=== PATIENT | female | born 1990 | race Caucasian/White ===

== ENCOUNTER 2017-02-13 07:12 | Emergency (ER) | payer OTHER ==
[2017-02-13] MEDS ORDERED: SODIUM CHLORIDE 0.9% 500 ML IV STA (07:46)
[2017-02-13] MEDS ORDERED: SODIUM CHLORIDE 0.9% 1,000 ML IV STA (07:46)
[2017-02-13] MEDS ORDERED: KETOROLAC 30 MG/ML 1 ML VIAL IVP STA (07:46)
[2017-02-13] MEDS ORDERED: FAMOTIDINE 20 MG/2 ML VIAL IV STA (07:47)
--- NOTE | 2017-02-13 07:50 | ED ---
General Adult HPI - General Chief complaint: Abdominal Pain Stated complaint: Abdominal Pain Time Seen by Provider: 02/13/17 07:37 Source: patient, RN notes reviewed Mode of arrival: ambulatory Limitations: no limitations - History of Present Illness Initial comments: Patient is a pleasant 27-year-old female presenting to the emergency Department with abdominal discomfort. Onset of symptoms was over a week ago. Symptoms have been worse since last night. Patient has had decreased appetite. Food doesn't seem to make symptoms worse. Discomfort is right upper abdomen without radiation. Patient had nausea and vomiting last night however nausea has now resolved. No history of similar symptoms previously. No fever. Patient reportedly recent negative home test. - Related Data Previous Rx's Medication Instructions Recorded Famotidine [Pepcid] 20 mg PO BID #30 tablet 02/13/17 Metoclopramide HCl [Reglan] 10 mg PO Q6HR PRN #15 tablet 02/13/17 traMADol HCl [Ultram] 50 mg PO Q6H PRN #12 tab 02/13/17 Allergies Allergy/AdvReac Type Severity Reaction Status Date / Time codeine Allergy Unknown Verified 02/13/17 07:17 diphenhydramine HCl Allergy Unknown Verified 02/13/17 07:17 [From Benadryl] Review of Systems ROS Statement: Those systems with pertinent positive or pertinent negative responses have been documented in the HPI. ROS Other: All systems not noted in ROS Statement are negative. Constitutional: Denies: fever Eyes: Denies: eye pain ENT: Denies: ear pain Respiratory: Denies: cough Cardiovascular: Denies: chest pain Endocrine: Denies: fatigue Gastrointestinal: Reports: abdominal pain, nausea, vomiting. Denies: diarrhea, constipation Genitourinary: Denies: dysuria Musculoskeletal: Denies: back pain Skin: Denies: rash Neurological: Denies: weakness Past Medical History Past Medical History: Asthma, Musculoskeletal Disorder Additional Past Medical History / Comment(s): Obstetric history: This is her first . She has had care with me since 9 weeks gestation. O neg, abs neg, Rub Imm, RPR NR, Hep B neg. normal 1hr GTT. Rhogam received . normal anatomy US. GBS neg History of Any Multi-Drug Resistant Organisms: None Reported Past Surgical History: Tonsillectomy Additional Past Surgical History / Comment(s): no hx of anesthesia problems for self or family Past Anesthesia/Blood Transfusion Reactions: No Reported Reaction Past Psychological History: ADD/ADHD Smoking Status: Current every day smoker Past Alcohol Use History: Abuse, Occasional Past Drug Use History: None Reported General Exam Limitations: no limitations General appearance: alert, in no apparent distress Eye exam: Present: normal appearance, PERRL ENT exam: Present: normal oropharynx Neck exam: Present: normal inspection Respiratory exam: Present: normal lung sounds bilaterally Cardiovascular Exam: Present: regular rate, normal rhythm Expanded Peripheral pulses: 2+: Dorsalis Pedis (R), Dorsalis Pedis (L) GI/Abdominal exam: Present: soft, tenderness (Mild to moderate tenderness right upper quadrant), normal bowel sounds. Absent: distended, guarding, rebound, rigid, pulsatile mass Extremities exam: Present: normal inspection Neurological exam: Present: alert Psychiatric exam: Present: normal affect, normal mood Skin exam: Present: normal color Course Vital Signs 02/13/17 02/13/17 07:15 07:40 Temperature 97.4 F L Pulse Rate 72 62 Respiratory 20 18 Rate Blood Pressure 124/66 116/74 O2 Sat by Pulse 98 98 Oximetry Medical Decision Making - Medical Decision Making Patient reevaluated and resting comfortably in bed. Patient has some improvement of symptoms however states she is not quite symptom-free. Abdomen soft and nontender. Patient offered computed tomography scan of the abdomen however refuses and is comfortable with discharge and agrees to follow-up. - Lab Data Result diagrams: 02/13/17 07:35 02/13/17 07:35 Lab Results 02/13/17 02/13/17 02/13/17 Range/Units 07:35 07:35 07:35 WBC 5.0 (3.8-10.6) k/uL RBC 4.46 (3.80-5.40) m/uL Hgb 13.6 (11.4-16.0) gm/dL Hct 40.0 (34.0-46.0) % MCV 89.7 (80.0-100.0) fL MCH 30.5 (25.0-35.0) pg MCHC 34.1 (31.0-37.0) g/dL RDW 12.6 (11.5-15.5) % Plt Count 192 (150-450) k/uL Neutrophils % 47 % Lymphocytes % 39 % Monocytes % 6 % Eosinophils % 4 % Basophils % 1 % Neutrophils # 2.4 (1.3-7.7) k/uL Lymphocytes # 1.9 (1.0-4.8) k/uL Monocytes # 0.3 (0-1.0) k/uL Eosinophils # 0.2 (0-0.7) k/uL Basophils # 0.0 (0-0.2) k/uL PT (9.0-12.0) sec INR (<1.1) APTT (22.0-30.0) sec Sodium 143 (137-145) mmol/L Potassium 3.7 (3.5-5.1) mmol/L Chloride 110 H (98-107) mmol/L Carbon Dioxide 21 L (22-30) mmol/L Anion Gap 12 mmol/L BUN 11 (7-17) mg/dL Creatinine 0.65 (0.52-1.04) mg/dL Est GFR (MDRD) Af Amer >60 (>60 ml/min/1.73 sqM) Est GFR (MDRD) Non-Af >60 (>60 ml/min/1.73 sqM) Glucose 99 (74-99) mg/dL Calcium 9.3 (8.4-10.2) mg/dL Total Bilirubin 0.8 (0.2-1.3) mg/dL AST 18 (14-36) U/L ALT 22 (9-52) U/L Alkaline Phosphatase 55 (38-126) U/L Total Protein 6.9 (6.3-8.2) g/dL Albumin 4.3 (3.5-5.0) g/dL Amylase 55 (30-110) U/L Lipase 108 (23-300) U/L Urine Color Urine Appearance (Clear) Urine pH (5.0-8.0) Ur Specific [place] (1.001-1.035) Urine Protein (Negative) Urine Glucose (UA) (Negative) Urine Ketones (Negative) Urine Blood (Negative) Urine Nitrite (Negative) Urine Bilirubin (Negative) Urine Urobilinogen (<2.0) mg/dL Ur Leukocyte Esterase (Negative) Urine RBC (0-5) /hpf Urine WBC (0-5) /hpf Ur Squamous Epith Cells (0-4) /hpf Urine Bacteria (None) /hpf Urine Mucus (None) /hpf Urine HCG, Qual Not Detected (Not Detectd) 02/13/17 02/13/17 Range/Units 07:35 07:35 WBC (3.8-10.6) k/uL RBC (3.80-5.40) m/uL Hgb (11.4-16.0) gm/dL Hct (34.0-46.0) % MCV (80.0-100.0) fL MCH (25.0-35.0) pg MCHC (31.0-37.0) g/dL RDW (11.5-15.5) % Plt Count (150-450) k/uL Neutrophils % % Lymphocytes % % Monocytes % % Eosinophils % % Basophils % % Neutrophils # (1.3-7.7) k/uL Lymphocytes # (1.0-4.8) k/uL Monocytes # (0-1.0) k/uL Eosinophils # (0-0.7) k/uL Basophils # (0-0.2) k/uL PT 10.6 (9.0-12.0) sec INR 1.0 (<1.1) APTT 25.0 (22.0-30.0) sec Sodium (137-145) mmol/L Potassium (3.5-5.1) mmol/L Chloride (98-107) mmol/L Carbon Dioxide (22-30) mmol/L Anion Gap mmol/L BUN (7-17) mg/dL Creatinine (0.52-1.04) mg/dL Est GFR (MDRD) Af Amer (>60 ml/min/1.73 sqM) Est GFR (MDRD) Non-Af (>60 ml/min/1.73 sqM) Glucose (74-99) mg/dL Calcium (8.4-10.2) mg/dL Total Bilirubin (0.2-1.3) mg/dL AST (14-36) U/L ALT (9-52) U/L Alkaline Phosphatase (38-126) U/L Total Protein (6.3-8.2) g/dL Albumin (3.5-5.0) g/dL Amylase (30-110) U/L Lipase (23-300) U/L Urine Color Yellow Urine Appearance Turbid H (Clear) Urine pH 6.0 (5.0-8.0) Ur Specific [place] 1.021 (1.001-1.035) Urine Protein Trace H (Negative) Urine Glucose (UA) Negative (Negative) Urine Ketones Negative (Negative) Urine Blood Negative (Negative) Urine Nitrite Positive H (Negative) Urine Bilirubin Negative (Negative) Urine Urobilinogen <2.0 (<2.0) mg/dL Ur Leukocyte Esterase Trace H (Negative) Urine RBC 6 H (0-5) /hpf Urine WBC 3 (0-5) /hpf Ur Squamous Epith Cells 52 H (0-4) /hpf Urine Bacteria Occasional H (None) /hpf Urine Mucus Many H (None) /hpf Urine HCG, Qual (Not Detectd) - Radiology Data Radiology results: report reviewed (Ultrasound gallbladder shows no acute process), image reviewed (KUB shows no acute process) Disposition Clinical Impression: Abdominal pain Disposition: HOME SELF-CARE Condition: Stable Instructions: Abdominal Pain (ED) Additional Instructions: Please follow-up to in the beginning of the week. Consider HIDA scan. Consider EGD/scope. Return for increased pain, vomiting, fever, worsening symptoms or other concerns. Prescriptions: Famotidine [Pepcid] 20 mg PO BID #30 tablet Metoclopramide HCl [Reglan] 10 mg PO Q6HR PRN #15 tablet PRN Reason: Nausea traMADol HCl [Ultram] 50 mg PO Q6H PRN #12 tab PRN Reason: Pain/Discomfort Referrals: Adriana Michaels MD [Primary Care Provider] - 1-2 days Time of Disposition: 09:21
[2017-02-13 08:04] LABS: Basophils % (A) 1 %; CH 30.6; CHCM 34.3; Eosinophils # (A) 0.2 k/uL (0-0.7); Eosinophils % (A) 4 %; HDW 2.68; HGB 13.6 gm/dL (11.4-16.0); Luc % (Auto) 4; Lymphocytes # (A) 1.9 k/uL (1.0-4.8); Lymphocytes % (A) 39 %; MCH 30.5 pg (25.0-35.0); MCHC 34.1 g/dL (31.0-37.0); MCV 89.7 fL (80.0-100.0); Mean Platelet Volume 8.3; Monocytes # (A) 0.3 k/uL (0-1.0); Monocytes % (A) 6 %; Neutrophils # (A) 2.4 k/uL (1.3-7.7); Neutrophils % (A) 47 %; RBC 4.46 m/uL (3.80-5.40); RDW 12.6 % (11.5-15.5); WBC (Perox) 5.26
[2017-02-13 08:16] LABS: Appearance,Urine Turbid (Clear); Bacteria,Urine Occasional /hpf; Bilirubin,Urine Negative (Negative); Glucose,Urine (UA) Negative (Negative); Ketones,Urine Negative (Negative); Leukocyte Esterase,Urine Trace (Negative); Mucus,Urine Many /hpf; Nitrite,Urine Positive (Negative); Particle Count 38347; Protein,Urine Trace (Negative); RBC,Urine 6 /hpf (0-5); Specific Gravity,Urine 1.021 (1.001-1.035); Squamous Epithelial Cell,Urine 52 /hpf (0-4); UA Billing (MACRO vs. MICRO) MICRO; Urobilinogen,Urine <2.0 mg/dL (<2.0); WBC,Urine 3 /hpf (0-5)
[2017-02-13 08:18] LABS: Prothrombin Time 10.6 sec (9.0-12.0)
[2017-02-13 08:24] LABS: ALT 22 U/L (9-52); AST 18 U/L (14-36); Alkaline Phosphatase 55 U/L (38-126); Amylase 55 U/L (30-110); Anion Gap 12 mmol/L; Blood Urea Nitrogen 11 mg/dL (7-17); Calcium 9.3 mg/dL (8.4-10.2); Carbon Dioxide 21 mmol/L (22-30); Chloride 110 mmol/L (98-107); Glucose 99 mg/dL (74-99); Non-African American GFR(MDRD) >60 (>60 ml/min/1.73 sqM); Potassium 3.7 mmol/L (3.5-5.1); Sodium 143 mmol/L (137-145); Total Bilirubin 0.8 mg/dL (0.2-1.3); Total Protein 6.9 g/dL (6.3-8.2)
--- NOTE | 2017-02-13 09:01 | US ---
EXAMINATION TYPE: US gallbladder DATE OF EXAM: 02/13/2017 COMPARISON: NONE CLINICAL HISTORY: Pain. EC patient with nausea, vomiting and RLQ pain EXAM MEASUREMENTS: Liver Length: 17.5 cm Gallbladder Wall: 0.1 cm CBD: 0.5 cm Right Kidney: 10.3 x 5.4 x 3.8 cm Pancreas: wnl Liver: wnl Gallbladder: wnl Evidence for sonographic Wood's sign: No CBD: wnl Right Kidney: wnl IMPRESSION: 1. No acute process.
--- NOTE | 2017-02-13 09:02 | XR ---
EXAMINATION TYPE: XR KUB DATE OF EXAM: 02/13/2017 COMPARISON: NONE HISTORY: Pain TECHNIQUE: One view abdominal series FINDINGS: The osseous structures are intact. The bowel gas pattern is nonspecific. Lung bases are clear. IMPRESSION: 1. Nonspecific abdomen. No evidence of obstruction.
[2017-02-13] MEDS ORDERED: RX INFO: IV CONTRAST WAS GIVEN 1 EACH MISC MISCELLANE PRN (09:41)
[2017-02-13] MEDS ORDERED: HYDROmorphone 1 MG/ML 1 ML SYRINGE IVP STA (09:41)
--- NOTE | 2017-02-13 10:30 | CT ---
EXAM: CT Abdomen and Pelvis With Intravenous Contrast CLINICAL HISTORY: 27-year-old female with mid abdominal pain. TECHNIQUE: Axial computed tomography images of the abdomen and pelvis with intravenous contrast. Coronal and sagittal reformatted images were created and reviewed. CTDI is 10.3 mGy and DLP is 405.4 mGy-cm. This CT exam was performed using one or more of the following dose reduction techniques: automated exposure control, adjustment of the mA and/or kV according to patient size, and/or use of iterative reconstruction technique. COMPARISON: Right upper quadrant ultrasound earlier same date. FINDINGS: Lower thorax: Unremarkable. ABDOMEN: Liver: Unremarkable. Gallbladder and bile ducts: Unremarkable. Pancreas: Unremarkable. Spleen: Unremarkable. Adrenals: Unremarkable. Kidneys and ureters: Unremarkable. Stomach and bowel: Mildly prominent hanks of the essentially empty ascending and descending/sigmoid colon, likely secondary to nondistention. Appendix: Unremarkable. PELVIS: Bladder: Unremarkable. Reproductive: Prominent, hyperenhancing left paraovarian/gonadal veins. ABDOMEN and PELVIS: Intraperitoneal space: Minimal right posterior pelvic ascites. No free air. Bones/joints: No acute abnormality. Soft tissues: Umbilical ring. Vasculature: Unremarkable. Lymph nodes: No pathologically enlarged lymph nodes. IMPRESSION: No definite acute abnormality identified to explain mid abdominal pain; prominent hanks of the empty/nondistended portions of the large bowel noted, most likely secondary to nondistention, though mild acute colitis is not excluded.
[2017-02-13 10:46] VITALS: BP 109/63
[2017-02-13 11:32] VITALS: PULSE 55; RESP 16; TEMP 97.5
== END 2017-02-13 11:32 | disposition home or self-care (01) ==
LOC: EC 07:12
DX: R10.11 Right upper quadrant pain (principal); R11.10 Vomiting, unspecified; F17.200 Nicotine dependence, unspecified, uncomplicated; Z88.5 Allergy status to narcotic agent; Z88.8 Allergy status to other drugs, medicaments and biological substances
CPT/HCPCS: 99284; 96374; 96375 ×2; 96361 ×4; 36415; 80053; 82150; 83690; 85025; 85610; 85730; 81001; 81025; 74000; 76705; 74177; J1885; J1170; Q9967

== ENCOUNTER 2017-04-01 17:37 | Emergency (ER) | payer OTHER ==
[2017-04-01] MEDS ORDERED: SODIUM CHLORIDE 0.9% 1,000 ML IV ONE (18:11)
[2017-04-01] MEDS ORDERED: METOCLOPRAMIDE 5 MG/ML 2 ML VIAL IVP STA (18:11)
[2017-04-01] MEDS ORDERED: KETOROLAC 30 MG/ML 1 ML VIAL IVP STA (18:11)
--- NOTE | 2017-04-01 18:16 | ED ---
General Adult HPI - General Chief complaint: Nausea/Vomiting/Diarrhea Stated complaint: NVD Time Seen by Provider: 04/01/17 17:51 Source: EMS, RN notes reviewed Mode of arrival: EMS Limitations: no limitations - History of Present Illness Initial comments: Patient is a 27-year-old female presents emergency room for evaluation of nausea , vomiting and abdominal pain. Patient states having on and off abdominal pain for the past few months. Patient states she follow-up with her primary care provider and they told her she had an ulcer. Patient states over the past few months she's been having on and off vomiting. Patient states she was seen at [facility] about 3 days ago and they sent her home with Ayudaruman. Patient states the Zofran is not helping. Patient states she still having vomiting and intermittent suprapubic abdominal pain. Patient denies any pain or burning during urination, trouble urinating or blood in urine. Patient denies history of STDs. Patient denies any vaginal discharge or vaginal discomfort. Patient denies history of abdominal surgeries. Patient denies recent travel outside the country. Patient states having 5 out of 10 pain. Patient denies flank pain. Patient denies fevers or chills. Patient does state that she is feeling dizzy with a slight headache. - Related Data Home Medications Medication Instructions Recorded Confirmed Ondansetron Odt [Zofran Odt] 4 mg PO Q8HR PRN 04/01/17 04/01/17 Previous Rx's Medication Instructions Recorded Metoclopramide HCl [Reglan] 10 mg PO TID PRN #12 tablet 04/01/17 Allergies Allergy/AdvReac Type Severity Reaction Status Date / Time codeine Allergy Unknown Verified 04/01/17 17:54 diphenhydramine HCl Allergy Unknown Verified 04/01/17 17:54 [From Benadryl] Review of Systems ROS Statement: Those systems with pertinent positive or pertinent negative responses have been documented in the HPI. ROS Other: All systems not noted in ROS Statement are negative. Past Medical History Past Medical History: Asthma, Musculoskeletal Disorder Additional Past Medical History / Comment(s): Obstetric history: This is her first . She has had care with me since 9 weeks gestation. O neg, abs neg, Rub Imm, RPR NR, Hep B neg. normal 1hr GTT. Rhogam received . normal anatomy US. GBS neg History of Any Multi-Drug Resistant Organisms: None Reported Past Surgical History: Tonsillectomy Additional Past Surgical History / Comment(s): no hx of anesthesia problems for self or family Past Anesthesia/Blood Transfusion Reactions: No Reported Reaction Past Psychological History: ADD/ADHD Smoking Status: Current every day smoker Past Alcohol Use History: Abuse, Occasional Past Drug Use History: None Reported General Exam - General Exam Comments Initial Comments: laying in exam room, no distress. Limitations: no limitations General appearance: alert, in no apparent distress Head exam: Present: atraumatic, normocephalic, normal inspection Eye exam: Present: normal appearance ENT exam: Present: normal exam Neck exam: Present: normal inspection Respiratory exam: Present: normal lung sounds bilaterally. Absent: respiratory distress Cardiovascular Exam: Present: regular rate, normal rhythm, normal heart sounds GI/Abdominal exam: Present: soft, tenderness (suprapubic), normal bowel sounds. Absent: distended, guarding, rebound, rigid Extremities exam: Present: normal inspection Back exam: Present: normal inspection Neurological exam: Present: alert, oriented X3, CN II-XII intact, normal gait Psychiatric exam: Present: normal affect, normal mood Skin exam: Present: warm, dry, intact, normal color. Absent: rash Course Vital Signs 04/01/17 04/01/17 04/01/17 17:54 20:38 21:40 Temperature 97.0 F L 98.7 F Pulse Rate 61 68 76 Respiratory 17 18 18 Rate Blood Pressure 112/71 126/58 126/58 O2 Sat by Pulse 99 98 98 Oximetry Medical Decision Making - Medical Decision Making Patient is a 27-year-old female since emergency room for evaluation of lower abdominal pain. Ultrasound: Small amount of free fluid in the cul-de-sac. Normal uterus and endometrium. No evidence of ovarian torsion. It is possible patient had an ovarian cyst that ruptured. Labs show no concerning findings. Patient advised to follow-up with primary care provider or GI specialist. Patient states she has been following up with GI specialist regarding the nausea and vomiting for the past few months. Patient states she understands everything that was discussed with her. Return parameters discussed. Case discussed with Dr. Mims. - Lab Data Result diagrams: 04/01/17 18:06 04/01/17 18:06 Lab Results 04/01/17 04/01/17 04/01/17 Range/Units 18:06 18:06 18:30 WBC 5.6 (3.8-10.6) k/uL RBC 4.12 (3.80-5.40) m/uL Hgb 12.2 (11.4-16.0) gm/dL Hct 36.1 (34.0-46.0) % MCV 87.6 (80.0-100.0) fL MCH 29.6 (25.0-35.0) pg MCHC 33.8 (31.0-37.0) g/dL RDW 12.9 (11.5-15.5) % Plt Count 170 (150-450) k/uL Neutrophils % 72 % Lymphocytes % 20 % Monocytes % 4 % Eosinophils % 2 % Basophils % 0 % Neutrophils # 4.0 (1.3-7.7) k/uL Lymphocytes # 1.1 (1.0-4.8) k/uL Monocytes # 0.2 (0-1.0) k/uL Eosinophils # 0.1 (0-0.7) k/uL Basophils # 0.0 (0-0.2) k/uL Sodium 138 (137-145) mmol/L Potassium 3.8 (3.5-5.1) mmol/L Chloride 107 (98-107) mmol/L Carbon Dioxide 22 (22-30) mmol/L Anion Gap 9 mmol/L BUN 10 (7-17) mg/dL Creatinine 0.60 (0.52-1.04) mg/dL Est GFR (MDRD) Af Amer >60 (>60 ml/min/1.73 sqM) Est GFR (MDRD) Non-Af >60 (>60 ml/min/1.73 sqM) Glucose 90 (74-99) mg/dL Calcium 8.6 (8.4-10.2) mg/dL Magnesium 1.9 (1.6-2.3) mg/dL Total Bilirubin 0.6 (0.2-1.3) mg/dL AST 27 (14-36) U/L ALT 40 (9-52) U/L Alkaline Phosphatase 54 (38-126) U/L Total Protein 6.6 (6.3-8.2) g/dL Albumin 4.2 (3.5-5.0) g/dL Amylase 56 (30-110) U/L Lipase 69 (23-300) U/L Urine Color Urine Appearance (Clear) Urine pH (5.0-8.0) Ur Specific [place] (1.001-1.035) Urine Protein (Negative) Urine Glucose (UA) (Negative) Urine Ketones (Negative) Urine Blood (Negative) Urine Nitrite (Negative) Urine Bilirubin (Negative) Urine Urobilinogen (<2.0) mg/dL Ur Leukocyte Esterase (Negative) Urine RBC (0-5) /hpf Urine WBC (0-5) /hpf Ur Squamous Epith Cells (0-4) /hpf Urine Bacteria (None) /hpf Hyaline Casts (0-2) /lpf Urine Mucus (None) /hpf Urine HCG, Qual Not Detected (Not Detectd) 04/01/17 Range/Units 18:30 WBC (3.8-10.6) k/uL RBC (3.80-5.40) m/uL Hgb (11.4-16.0) gm/dL Hct (34.0-46.0) % MCV (80.0-100.0) fL MCH (25.0-35.0) pg MCHC (31.0-37.0) g/dL RDW (11.5-15.5) % Plt Count (150-450) k/uL Neutrophils % % Lymphocytes % % Monocytes % % Eosinophils % % Basophils % % Neutrophils # (1.3-7.7) k/uL Lymphocytes # (1.0-4.8) k/uL Monocytes # (0-1.0) k/uL Eosinophils # (0-0.7) k/uL Basophils # (0-0.2) k/uL Sodium (137-145) mmol/L Potassium (3.5-5.1) mmol/L Chloride (98-107) mmol/L Carbon Dioxide (22-30) mmol/L Anion Gap mmol/L BUN (7-17) mg/dL Creatinine (0.52-1.04) mg/dL Est GFR (MDRD) Af Amer (>60 ml/min/1.73 sqM) Est GFR (MDRD) Non-Af (>60 ml/min/1.73 sqM) Glucose (74-99) mg/dL Calcium (8.4-10.2) mg/dL Magnesium (1.6-2.3) mg/dL Total Bilirubin (0.2-1.3) mg/dL AST (14-36) U/L ALT (9-52) U/L Alkaline Phosphatase (38-126) U/L Total Protein (6.3-8.2) g/dL Albumin (3.5-5.0) g/dL Amylase (30-110) U/L Lipase (23-300) U/L Urine Color Yellow Urine Appearance Cloudy H (Clear) Urine pH 7.0 (5.0-8.0) Ur Specific [place] 1.019 (1.001-1.035) Urine Protein Trace H (Negative) Urine Glucose (UA) Negative (Negative) Urine Ketones 1+ H (Negative) Urine Blood Negative (Negative) Urine Nitrite Negative (Negative) Urine Bilirubin Negative (Negative) Urine Urobilinogen <2.0 (<2.0) mg/dL Ur Leukocyte Esterase Negative (Negative) Urine RBC 3 (0-5) /hpf Urine WBC 2 (0-5) /hpf Ur Squamous Epith Cells 6 H (0-4) /hpf Urine Bacteria Rare H (None) /hpf Hyaline Casts 1 (0-2) /lpf Urine Mucus Moderate H (None) /hpf Urine HCG, Qual (Not Detectd) - Radiology Data Radiology results: report reviewed, image reviewed Disposition Clinical Impression: Nausea and vomiting, Abdominal pain Disposition: HOME SELF-CARE Condition: Good Instructions: Abdominal Pain (ED) Additional Instructions: Please follow-up with primary care provider or GI specialist. Take Reglan as needed for nausea. If any new symptom arises or symptoms worsen, return to ER as soon as possible. Prescriptions: Metoclopramide HCl [Reglan] 10 mg PO TID PRN #12 tablet PRN Reason: Pain Referrals: Adriana Michaels MD [Primary Care Provider] - 1-2 days Time of Disposition: 21:12
[2017-04-01 18:20] LABS: Basophils % (A) 0 %; CH 30.3; CHCM 34.8; Eosinophils # (A) 0.1 k/uL (0-0.7); Eosinophils % (A) 2 %; HCT 36.1 % (34.0-46.0); HDW 2.61; HGB 12.2 gm/dL (11.4-16.0); Luc # (Auto) 0.09; Luc % (Auto) 2; Lymphocytes # (A) 1.1 k/uL (1.0-4.8); Lymphocytes % (A) 20 %; MCH 29.6 pg (25.0-35.0); MCHC 33.8 g/dL (31.0-37.0); MCV 87.6 fL (80.0-100.0); Mean Platelet Volume 8.5; Monocytes # (A) 0.2 k/uL (0-1.0); Monocytes % (A) 4 %; Neutrophils % (A) 72 %; RBC 4.12 m/uL (3.80-5.40); RDW 12.9 % (11.5-15.5); WBC 5.6 k/uL (3.8-10.6); WBC (Perox) 5.86
[2017-04-01 18:23] LABS: ALT 40 U/L (9-52); AST 27 U/L (14-36); Alkaline Phosphatase 54 U/L (38-126); Amylase 56 U/L (30-110); Anion Gap 9 mmol/L; Blood Urea Nitrogen 10 mg/dL (7-17); Calcium 8.6 mg/dL (8.4-10.2); Carbon Dioxide 22 mmol/L (22-30); Chloride 107 mmol/L (98-107); Glucose 90 mg/dL (74-99); Magnesium 1.9 mg/dL (1.6-2.3); Non-African American GFR(MDRD) >60 (>60 ml/min/1.73 sqM); Potassium 3.8 mmol/L (3.5-5.1); Sodium 138 mmol/L (137-145); Total Bilirubin 0.6 mg/dL (0.2-1.3); Total Protein 6.6 g/dL (6.3-8.2)
[2017-04-01 18:59] LABS: Appearance,Urine Cloudy (Clear); Bacteria,Urine Rare /hpf; Bilirubin,Urine Negative (Negative); Glucose,Urine (UA) Negative (Negative); Ketones,Urine 1+ (Negative); Leukocyte Esterase,Urine Negative (Negative); Mucus,Urine Moderate /hpf; Nitrite,Urine Negative (Negative); Particle Count 6606; Protein,Urine Trace (Negative); RBC,Urine 3 /hpf (0-5); Specific Gravity,Urine 1.019 (1.001-1.035); Squamous Epithelial Cell,Urine 6 /hpf (0-4); UA Billing (MACRO vs. MICRO) MICRO; Urobilinogen,Urine <2.0 mg/dL (<2.0); WBC,Urine 2 /hpf (0-5)
[2017-04-01 20:41] VITALS: BP 126/58; RESP 18
--- NOTE | 2017-04-01 21:35 | US ---
EXAMINATION TYPE: US transvaginal DATE OF EXAM: 04/01/2017 COMPARISON: NONE CLINICAL HISTORY: Pain. Irregular menses, pelvic pain TECHNIQUE: Transvaginal (TV) Date of LMP: 03/29/17 EXAM MEASUREMENTS: Uterus: 9.5 x 4.9 x 5.9 cm Endometrial Stripe: 0.5 cm Right Ovary: 2.7 x 1.6 x 1.4 cm Left Ovary: 3.1 x 1.7 x 1.8 cm 1. Uterus: Anteverted appears wnl 2. Endometrium: wnl 3. Right Ovary: follicles noted 4. Left Ovary: follicles noted Spectral, color and waveform doppler imaging shows good arterial and venous flow within the ovaries ; there is no evidence for ovarian torsion. 5. Bilateral Adnexa: appears wnl 6. Posterior cul-de-sac: small amount of free fluid IMPRESSION: There is a small amount of free fluid in the cul-de-sac. Normal uterus and endometrium. N o evidence of ovarian torsion.
[2017-04-01 21:41] VITALS: PULSE 76; TEMP 98.7
== END 2017-04-01 21:39 | disposition home or self-care (01) ==
LOC: EC 17:37
DX: R11.2 Nausea with vomiting, unspecified (principal); R19.7 Diarrhea, unspecified; R10.30 Lower abdominal pain, unspecified; R42 Dizziness and giddiness; R51 Headache; F17.200 Nicotine dependence, unspecified, uncomplicated; Z88.5 Allergy status to narcotic agent; Z88.8 Allergy status to other drugs, medicaments and biological substances
CPT/HCPCS: 99285; 96374; 96375; 36415; 80053; 82150; 83690; 83735; 85025; 81001; 81025; 87086; 93975; 76830; J2765; J1885

== ENCOUNTER 2017-08-19 18:50 | Emergency (ER) | payer OTHER ==
[2017-08-19 19:04] VITALS: TEMP 97.9
[2017-08-19] MEDS ORDERED: SODIUM CHLORIDE 0.9% 1,000 ML IV ONE (19:23)
[2017-08-19] MEDS ORDERED: ONDANSETRON 4 MG/2 ML VIAL IVP STA (19:23)
[2017-08-19 19:42] LABS: Basophils % (A) 0 %; CH 29.5; Eosinophils # (A) 0.2 k/uL (0-0.7); Eosinophils % (A) 3 %; HCT 38.8 % (34.0-46.0); HDW 2.33; HGB 12.8 gm/dL (11.4-16.0); Luc # (Auto) 0.12; Luc % (Auto) 1; Lymphocytes % (A) 23 %; MCH 28.7 pg (25.0-35.0); Mean Platelet Volume 8.1; Monocytes # (A) 0.4 k/uL (0-1.0); Monocytes % (A) 5 %; Neutrophils # (A) 6.1 k/uL (1.3-7.7); Neutrophils % (A) 68 %; RBC 4.46 m/uL (3.80-5.40); RDW 14.3 % (11.5-15.5); WBC 8.9 k/uL (3.8-10.6); WBC (Perox) 9.23
[2017-08-19 19:51] LABS: ALT 68 U/L (9-52); AST 33 U/L (14-36); Alkaline Phosphatase 50 U/L (38-126); Anion Gap 11 mmol/L; Blood Urea Nitrogen 10 mg/dL (7-17); Calcium 9.4 mg/dL (8.4-10.2); Carbon Dioxide 20 mmol/L (22-30); Chloride 106 mmol/L (98-107); Glucose 87 mg/dL (74-99); Non-African American GFR(MDRD) >60 (>60 ml/min/1.73 sqM); Potassium 4.1 mmol/L (3.5-5.1); Sodium 137 mmol/L (137-145); Total Bilirubin 0.6 mg/dL (0.2-1.3); Total Protein 6.7 g/dL (6.3-8.2)
[2017-08-19 20:00] LABS: Appearance,Urine Cloudy (Clear); Bacteria,Urine Rare /hpf; Bilirubin,Urine Negative (Negative); Glucose,Urine (UA) Negative (Negative); Ketones,Urine Negative (Negative); Leukocyte Esterase,Urine Negative (Negative); Mucus,Urine Rare /hpf; Nitrite,Urine Negative (Negative); Particle Count 3796; Protein,Urine Negative (Negative); RBC,Urine <1 /hpf (0-5); Specific Gravity,Urine 1.018 (1.001-1.035); Squamous Epithelial Cell,Urine 20 /hpf (0-4); UA Billing (MACRO vs. MICRO) MICRO; Urobilinogen,Urine <2.0 mg/dL (<2.0); WBC,Urine <1 /hpf (0-5)
--- NOTE | 2017-08-19 20:32 | US ---
EXAMINATION TYPE: US OB <= 14 wk fetus DATE OF EXAM: 08/19/2017 COMPARISON: NONE CLINICAL HISTORY: Pain. Pelvic pain x 1 week EXAM PERFORMED: Transabdominal (TA) EXAM MEASUREMENTS: GESTATIONAL AGE / DATING Physician Established: Not yet established Dates by LMP: (6 weeks/3 days) EDC: 04/11/2018 Dates by First Scan: No IUP seen on last scan Dates by Current Scan for: (6 weeks/5 days) EDC: 04/09/2018 MATERNAL ANATOMY Uterus: 10.3 x 6.8 x 7.3cm Post CDS / Adnexa: wnl Presence of free fluid: no Presence of corpus luteal cyst: no Presence of subchorionic bleed: no GESTATION / SURVEY CRL: 0.80 (6 weeks/5 days) Yolk Sac (normal less than 6mm): 3mm Heart Rate: 170 bpm Rhythm: Normal IUP: Viable IUP Date of LMP: 07/05/2017 Beta HcG (if available): Not available at this time IMPRESSION: VIABLE IUP 6WKS 5DAYS BROCK 04/09/2018 HR 170BPM
[2017-08-19 21:01] VITALS: BP 114/58; PULSE 76; RESP 18
--- NOTE | 2017-08-19 21:16 | ED ---
General Adult HPI - General Chief complaint: Abdominal Pain Stated complaint: Abdominal pain, 7 weeks Time Seen by Provider: 08/19/17 19:05 Source: patient Mode of arrival: ambulatory Limitations: no limitations - History of Present Illness Initial comments: 27-year-old female who states she is about 7 weeks' and an LMP of 11/6 presented for evaluation of abdominal discomfort and hematuria. She states that for the last week she has been having epigastric and right lower quadrant abdominal discomfort. About 3 weeks ago she was diagnosed with a urinary tract infection however she was not given any antibiotics. She continues to have some dysuria. She also states she has a history of kidney stones however this pain is not similar at all. She is not tried any medications at home to control her symptoms. She has not followed up with her [employer] for this current but she states that she is on vitamins. - Related Data Home Medications Medication Instructions Recorded Confirmed Acetaminophen Tab [Tylenol Tab] 325 mg PO Q6HR PRN 08/19/17 08/19/17 Czm-Shfo-Eotcy Acid 1 cap PO DAILY 08/19/17 08/19/17 [-U Capsule (formulary)] Allergies Allergy/AdvReac Type Severity Reaction Status Date / Time codeine Allergy Rash/Hives Verified 08/19/17 19:12 diphenhydramine HCl Allergy Rash/Hives Verified 08/19/17 19:12 [From Benadryl] Review of Systems ROS Statement: Those systems with pertinent positive or pertinent negative responses have been documented in the HPI. ROS Other: All systems not noted in ROS Statement are negative. Constitutional: Denies: fever, chills Eyes: Denies: eye pain, eye discharge ENT: Denies: ear pain, throat pain Respiratory: Denies: cough, dyspnea, wheezes Cardiovascular: Denies: chest pain, palpitations Endocrine: Denies: fatigue, polydipsia, polyuria Gastrointestinal: Reports: abdominal pain, nausea. Denies: vomiting, diarrhea, constipation, hematemesis, melena Genitourinary: Reports: dysuria, hematuria. Denies: urgency, frequency, discharge Musculoskeletal: Denies: back pain, arthralgia, myalgia Skin: Denies: rash, lesions Neurological: Denies: headache, weakness Psychiatric: Denies: anxiety, depression Hematological/Lymphatic: Denies: easy bleeding, easy bruising Past Medical History Past Medical History: Asthma, Musculoskeletal Disorder Additional Past Medical History / Comment(s): Obstetric history: This is her first . She has had care with me since 9 weeks gestation. O neg, abs neg, Rub Imm, RPR NR, Hep B neg. normal 1hr GTT. Rhogam received . normal anatomy US. GBS neg History of Any Multi-Drug Resistant Organisms: None Reported Past Surgical History: Tonsillectomy Additional Past Surgical History / Comment(s): no hx of anesthesia problems for self or family Past Anesthesia/Blood Transfusion Reactions: No Reported Reaction Past Psychological History: ADD/ADHD Smoking Status: Former smoker Past Alcohol Use History: None Reported Past Drug Use History: None Reported General Exam Limitations: no limitations General appearance: alert, in no apparent distress Head exam: Present: atraumatic, normocephalic, normal inspection Eye exam: Present: normal appearance, PERRL, EOMI. Absent: scleral icterus, conjunctival injection, periorbital swelling ENT exam: Present: normal exam, mucous membranes moist Neck exam: Present: normal inspection. Absent: tenderness, meningismus, lymphadenopathy Respiratory exam: Present: normal lung sounds bilaterally. Absent: respiratory distress, wheezes, rales, rhonchi, stridor Cardiovascular Exam: Present: regular rate, normal rhythm, normal heart sounds. Absent: systolic murmur, diastolic murmur, rubs, gallop, clicks GI/Abdominal exam: Present: soft, normal bowel sounds. Absent: distended, tenderness, guarding, rebound, rigid Rectal exam: Present: deferred Extremities exam: Present: normal inspection, full ROM, normal capillary refill. Absent: tenderness, pedal edema, joint swelling, calf tenderness Back exam: Present: normal inspection Neurological exam: Present: alert, oriented X3, CN II-XII intact Psychiatric exam: Present: normal affect, normal mood Skin exam: Present: warm, dry, intact, normal color. Absent: rash Course Vital Signs 08/19/17 08/19/17 19:00 21:00 Temperature 97.9 F Pulse Rate 72 76 Respiratory 16 18 Rate Blood Pressure 116/62 114/58 O2 Sat by Pulse 98 100 Oximetry Medical Decision Making - Medical Decision Making 27-year-old female who states she is about 7 weeks gestation with LMP on 07/05 presented for evaluation of hematuria, dysuria, and abdominal discomfort. On physical examination she is in no apparent distress and has no abdominal tenderness to palpation. There is no CVA tenderness abdomen is soft without peritoneal signs of guarding, rigidity, or rebound. The remainder of her physical exam is benign.Labs revealed no significant abnormalities and is notably negative for urinary tract infection. She is Rh- however she denies any vaginal bleeding. She states that the hematuria is present in the toilet bowl and she is not noticing any blood and she wipes. At this time the administration of RhoGAM is not indicated and will hold off. Pelvic ultrasound shows a viable IUP at 6 weeks 5 days with an estimated date of delivery of . heart rate 170 bpm. The patient was reevaluated and had improvement in her symptoms. She was informed of all results and through shared decision making it was determined that she would be discharged with instructions to follow-up with her primary care physician. She is further advised to return to this facility if her symptoms should worsen or persist. The patient acknowledged an understanding of all information provided and agreed with this plan of care. - Lab Data Result diagrams: 08/19/17 19:33 08/19/17 19:33 Lab Results 08/19/17 08/19/17 08/19/17 Range/Units 19:33 19:33 19:33 WBC 8.9 (3.8-10.6) k/uL RBC 4.46 (3.80-5.40) m/uL Hgb 12.8 (11.4-16.0) gm/dL Hct 38.8 (34.0-46.0) % MCV 87.0 (80.0-100.0) fL MCH 28.7 (25.0-35.0) pg MCHC 33.0 (31.0-37.0) g/dL RDW 14.3 (11.5-15.5) % Plt Count 202 (150-450) k/uL Neutrophils % 68 % Lymphocytes % 23 % Monocytes % 5 % Eosinophils % 3 % Basophils % 0 % Neutrophils # 6.1 (1.3-7.7) k/uL Lymphocytes # 2.0 (1.0-4.8) k/uL Monocytes # 0.4 (0-1.0) k/uL Eosinophils # 0.2 (0-0.7) k/uL Basophils # 0.0 (0-0.2) k/uL Sodium 137 (137-145) mmol/L Potassium 4.1 (3.5-5.1) mmol/L Chloride 106 (98-107) mmol/L Carbon Dioxide 20 L (22-30) mmol/L Anion Gap 11 mmol/L BUN 10 (7-17) mg/dL Creatinine 0.50 L (0.52-1.04) mg/dL Est GFR (MDRD) Af Amer >60 (>60 ml/min/1.73 sqM) Est GFR (MDRD) Non-Af >60 (>60 ml/min/1.73 sqM) Glucose 87 (74-99) mg/dL Calcium 9.4 (8.4-10.2) mg/dL Total Bilirubin 0.6 (0.2-1.3) mg/dL AST 33 (14-36) U/L ALT 68 H (9-52) U/L Alkaline Phosphatase 50 (38-126) U/L Total Protein 6.7 (6.3-8.2) g/dL Albumin 4.1 (3.5-5.0) g/dL Lipase 73 (23-300) U/L Urine Color Urine Appearance (Clear) Urine pH (5.0-8.0) Ur Specific Niles (1.001-1.035) Urine Protein (Negative) Urine Glucose (UA) (Negative) Urine Ketones (Negative) Urine Blood (Negative) Urine Nitrite (Negative) Urine Bilirubin (Negative) Urine Urobilinogen (<2.0) mg/dL Ur Leukocyte Esterase (Negative) Urine RBC (0-5) /hpf Urine WBC (0-5) /hpf Ur Squamous Epith Cells (0-4) /hpf Urine Bacteria (None) /hpf Urine Mucus (None) /hpf Blood Type O Negative Blood Type Recheck No 08/19/17 Range/Units 19:45 WBC (3.8-10.6) k/uL RBC (3.80-5.40) m/uL Hgb (11.4-16.0) gm/dL Hct (34.0-46.0) % MCV (80.0-100.0) fL MCH (25.0-35.0) pg MCHC (31.0-37.0) g/dL RDW (11.5-15.5) % Plt Count (150-450) k/uL Neutrophils % % Lymphocytes % % Monocytes % % Eosinophils % % Basophils % % Neutrophils # (1.3-7.7) k/uL Lymphocytes # (1.0-4.8) k/uL Monocytes # (0-1.0) k/uL Eosinophils # (0-0.7) k/uL Basophils # (0-0.2) k/uL Sodium (137-145) mmol/L Potassium (3.5-5.1) mmol/L Chloride (98-107) mmol/L Carbon Dioxide (22-30) mmol/L Anion Gap mmol/L BUN (7-17) mg/dL Creatinine (0.52-1.04) mg/dL Est GFR (MDRD) Af Amer (>60 ml/min/1.73 sqM) Est GFR (MDRD) Non-Af (>60 ml/min/1.73 sqM) Glucose (74-99) mg/dL Calcium (8.4-10.2) mg/dL Total Bilirubin (0.2-1.3) mg/dL AST (14-36) U/L ALT (9-52) U/L Alkaline Phosphatase (38-126) U/L Total Protein (6.3-8.2) g/dL Albumin (3.5-5.0) g/dL Lipase (23-300) U/L Urine Color Yellow Urine Appearance Cloudy H (Clear) Urine pH 6.0 (5.0-8.0) Ur Specific [place] 1.018 (1.001-1.035) Urine Protein Negative (Negative) Urine Glucose (UA) Negative (Negative) Urine Ketones Negative (Negative) Urine Blood Negative (Negative) Urine Nitrite Negative (Negative) Urine Bilirubin Negative (Negative) Urine Urobilinogen <2.0 (<2.0) mg/dL Ur Leukocyte Esterase Negative (Negative) Urine RBC <1 (0-5) /hpf Urine WBC <1 (0-5) /hpf Ur Squamous Epith Cells 20 H (0-4) /hpf Urine Bacteria Rare H (None) /hpf Urine Mucus Rare H (None) /hpf Blood Type Blood Type Recheck Disposition Clinical Impression: Abdominal pain, Dysuria, First trimester Disposition: HOME SELF-CARE Condition: Stable Instructions: Abdominal Pain in (ED) Referrals: Adriana Michaels MD [Primary Care Provider] - 1-2 days Time of Disposition: 21:15
[2017-08-19] MEDS ORDERED: ONDANSETRON 4 MG ODT STARTER PACK 2 TAB BTL PO STA (21:54)
== END 2017-08-19 21:58 | disposition home or self-care (01) ==
LOC: EC 18:50
DX: O99.89 Other specified diseases and conditions complicating pregnancy, childbirth and the puerperium (principal); R10.31 Right lower quadrant pain; R30.0 Dysuria; Z87.891 Personal history of nicotine dependence; Z88.5 Allergy status to narcotic agent; Z88.8 Allergy status to other drugs, medicaments and biological substances; Z3A.01 Less than 8 weeks gestation of pregnancy; Z79.899 Other long term (current) drug therapy
CPT/HCPCS: 36415; 86900; 86901; 80053; 83690; 85025; 81001; 84702; 87086; 76801; 96374; 96361 ×2; 99284; J2405; S0119

== ENCOUNTER 2018-06-26 23:45 | Inpatient (IN) | payer MEDICAID, OTHER ==
[2018-06-26] MEDS ORDERED: SODIUM CHLORIDE 0.9% 500 ML 500 ML IV STA (23:59)
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
[2018-06-27 03:51] VITALS: BMI 25.1
[2018-06-27] MEDS ORDERED: MAG HYDROX/AL HYDROX/SIMETH 30 ML CUP PO PRN (04:32)
[2018-06-27] MEDS ORDERED: LORazepam 1 MG TAB PO PRN (04:32)
[2018-06-27] MEDS ORDERED: MAGNESIUM HYDROXIDE 2,400 MG/10 ML CUP PO PRN (04:32)
[2018-06-27] MEDS: NICOTINE 14MG/24HR PATCH TRANSDERM SCH (08:46)
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
[2018-06-27 11:27] LABS: Anisocytosis Slight; Basophils % (A) 1 %; Eosinophils # (A) 0.3 k/uL (0-0.7); Eosinophils % (A) 8 %; HCT 35.8 % (34.0-46.0); HGB 11.9 gm/dL (11.4-16.0); Lymphocytes # (A) 0.9 k/uL (1.0-4.8); Lymphocytes % (A) 24 %; MCH 27.7 pg (25.0-35.0); MCHC 33.1 g/dL (31.0-37.0); MCV 83.5 fL (80.0-100.0); Mean Platelet Volume 7.5; Monocytes # (A) 0.2 k/uL (0-1.0); Monocytes % (A) 5 %; Neutrophils # (A) 2.3 k/uL (1.3-7.7); Neutrophils % (A) 60 %; Platelet Count 219 k/uL (150-450); RBC 4.29 m/uL (3.80-5.40); RDW 16.7 % (11.5-15.5); WBC 3.9 k/uL (3.8-10.6)
[2018-06-27 11:50] LABS: ALT 32 U/L (9-52); AST 23 U/L (14-36); Albumin 3.7 g/dL (3.5-5.0); Alkaline Phosphatase 65 U/L (38-126); Anion Gap 8 mmol/L; Blood Urea Nitrogen 13 mg/dL (7-17); Calcium 9.1 mg/dL (8.4-10.2); Carbon Dioxide 24 mmol/L (22-30); Chloride 109 mmol/L (98-107); Cholesterol 121 mg/dL (<200); Glucose 102 mg/dL (74-99); HDL Cholesterol 39 mg/dL (40-60); LDL Cholesterol,Calculated 55 mg/dL (0-99); Potassium 3.2 mmol/L (3.5-5.1); Sodium 141 mmol/L (137-145); Total Bilirubin 0.6 mg/dL (0.2-1.3); Total Protein 6.4 g/dL (6.3-8.2); Triglycerides 137 mg/dL (<150)
--- NOTE | 2018-06-27 13:13 | P.CONS ---
History of Present Illness - History of Present Illness This is a pleasant 28 years old female with past medical history of asthma and musculoskeletal disorder and depression. Patient has a new about 9 weeks/ 2 months ago. And she presents to the mental health unit for suspected depressions and suicidal ideation and the psychiatry team are following the case. We have been consulted for medical management. However when I saw the patient she denies chest pain, no dyspnea. No change in urine or bowel habits. No nausea vomiting. No fever. No dizziness or headache. No blurred vision all abnormal weakness in limbs or extremities. And no other physical complaints. Recheck in agreement states is offered however patient declined. Risks and alternatives are explained. Review of Systems CONSTITUTIONAL: No fever, no malaise, no fatigue. HEENT: No recent visual problems or hearing problems. Denied any sore throat. CARDIOVASCULAR: No orthopnea, PND, no palpitations, no syncope. PULMONARY: No shortness of breath, no cough, no hemoptysis. GASTROINTESTINAL: No diarrhea, no nausea, no vomiting, no abdominal pain. Normoactive bowel sounds. NEUROLOGICAL: No headaches, no weakness, no numbness. HEMATOLOGICAL: Denies any bleeding or petechiae. GENITOURINARY: Denies any burning micturition, frequency, or urgency. MUSCULOSKELETAL/RHEUMATOLOGICAL: Denies any joint pain, swelling, or any muscle pain. ENDOCRINE: Denies any polyuria or polydipsia. Past Medical History Past Medical History: Asthma, Musculoskeletal Disorder Additional Past Medical History / Comment(s): Obstetric history: This is her first . She has had care with ma since 9 weeks gestation. O neg, abs neg, Rub Imm, RPR NR, Hep B neg. normal 1hr GTT. Rhogam received . normal anatomy US. GBS neg History of Any Multi-Drug Resistant Organisms: None Reported Past Surgical History: Tonsillectomy Additional Past Surgical History / Comment(s): no hx of anesthesia problems for self or family Past Anesthesia/Blood Transfusion Reactions: No Reported Reaction Smoking Status: Current every day smoker Medications and Allergies Home Medications Medication Instructions Recorded Confirmed Type No Known Home Medications 06/26/18 06/27/18 History Allergies Allergy/AdvReac Type Severity Reaction Status Date / Time codeine Allergy Rash/Hives Verified 06/27/18 03:27 diphenhydramine HCl Allergy Rash/Hives Verified 06/27/18 03:27 [From [facility]] Physical Exam Vitals: Vital Signs Temp Pulse Pulse Resp BP BP Pulse Ox 06/27/18 03:28 97.1 F L 69 16 128/67 06/26/18 23:49 98.1 F 70 18 136/90 98 Intake and Output 06/26/18 06/27/18 06/27/18 22:59 06:59 14:59 Other: Weight 68.492 kg GENERAL: The patient is alert and oriented x3, not in any acute distress. Well developed, well nourished. HEENT: Pupils are round and equally reacting to light. EOMI. No scleral icterus. No conjunctival pallor. Normocephalic, atraumatic. No pharyngeal erythema. No thyromegaly. CARDIOVASCULAR: S1 and S2 present. No murmurs, rubs, or gallops. PULMONARY: Chest is clear to auscultation, no wheezing or crackles. ABDOMEN: Soft, nontender, nondistended, normoactive bowel sounds. No palpable organomegaly. MUSCULOSKELETAL: No joint swelling or deformity. EXTREMITIES: No cyanosis, clubbing, or pedal edema. NEUROLOGICAL: Gross neurological examination did not reveal any focal deficits. SKIN: No rashes. Results CBC & Chem 7: 06/27/18 10:50 06/27/18 10:50 Assessment and Plan Assessment: History of asthma, not in acute exacerbation or attack U travel person, about 2 months ago depression and suicidal ideation. Management as per primary team Plan: This is a pleasant 28 years old female who presents for depression and suicidal ideation and spleen managed for her these and other psych illnesses by the primary team. He will been consulted for medical management. However patient doesn't have specific symptoms.Labs and medication were resumed. Continue same treatment. Continue with symptomatic treatment. Resume home medication. Monitor lytes and vitals. DVT and GI prophylaxis. Further recommendationsof the clinical course of the patient DVT prophylaxis: Patient is mobile and no need for anticoagulation Instructed to follow up with her PCP in one week after discharge Thank you for consulting us, please feel free to contact us for further clarification or questions.
[2018-06-27 19:29] LABS: Hemoglobin A1C 5.1 % (4.0-6.0)
[2018-06-27] MEDS ORDERED: lamoTRIgine 25 MG TAB PO SCH (21:00)
[2018-06-27] MEDS ORDERED: risperiDONE 0.5 MG TAB PO SCH (21:00)
[2018-06-27] MEDS ORDERED: POTASSIUM CHLORIDE ER 20 MEQ TAB.ER PO STA (21:52)
[2018-06-28] MEDS: NICOTINE 14MG/24HR PATCH TRANSDERM SCH (08:55)
[2018-06-28 10:19] LABS: Amphetamine Screen,Urine Not Detected (NotDetected); Barbiturate Screen,Urine Not Detected (NotDetected); Benzodiazepines Screen,Urine Not Detected (NotDetected); Cocaine Screen,Urine Not Detected (NotDetected); Methadone Screen, Urine Not Detected (NotDetected); Opiate Screen,Urine Not Detected (NotDetected); Oxycodone Screen, Urine Not Detected (NotDetected); Phencyclidine Screen,Urine Not Detected (NotDetected); Tricyclic Antidepressant,Urine Not Detected (NotDetected); Urn Cannabinoid Scrn Detected (NotDetected)
[2018-06-28 11:44] LABS: Anion Gap 9 mmol/L; Blood Urea Nitrogen 15 mg/dL (7-17); Calcium 9.6 mg/dL (8.4-10.2); Carbon Dioxide 23 mmol/L (22-30); Chloride 109 mmol/L (98-107); Glucose 98 mg/dL (74-99); Potassium 4.1 mmol/L (3.5-5.1); Sodium 141 mmol/L (137-145)
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
[2018-06-28] MEDS: risperiDONE 0.25 MG TAB PO SCH (20:42)
[2018-06-28] MEDS ORDERED: lamoTRIgine 25 MG TAB PO SCH (21:00)
[2018-06-29] MEDS: ACETAMINOPHEN TAB 325 MG TAB PO PRN ×2 (08:11→13:23)
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
[2018-06-29] MEDS: risperiDONE 0.25 MG TAB PO SCH (20:12)
[2018-06-29] MEDS ORDERED: lamoTRIgine 100 MG TAB PO SCH (21:00)
[2018-06-30 00:33] VITALS: RESP 16
[2018-06-30] MEDS: ACETAMINOPHEN TAB 325 MG TAB PO PRN (11:02)
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
[2018-06-30] MEDS: risperiDONE 0.25 MG TAB PO SCH (20:11)
[2018-06-30] MEDS ORDERED: lamoTRIgine 100 MG TAB PO SCH (21:00)
[2018-07-01 06:23] VITALS: BP 121/67; PULSE 61; TEMP 97.9
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
== END 2018-07-01 12:11 | disposition home or self-care (01) | DRG 885 ==
LOC: EC 23:45 → 3MHU 06-27 02:43
PROVIDERS: ADMIT Psychiatry & Neurology Psychiatry; ATTEND Psychiatry & Neurology Psychiatry
DX: F31.30 Bipolar disorder, current episode depressed, mild or moderate severity, unspecified (principal); R45.851 Suicidal ideations; F90.9 Attention-deficit hyperactivity disorder, unspecified type; J45.909 Unspecified asthma, uncomplicated; Z71.6 Tobacco abuse counseling; Z87.891 Personal history of nicotine dependence; Z88.5 Allergy status to narcotic agent; Z88.8 Allergy status to other drugs, medicaments and biological substances
CPT/HCPCS: 80048; 80053; 80061; 80306; 81025; 82075; 83036; 84436; 84443; 84480; 85025; 99285

== ENCOUNTER 2018-12-12 19:19 | Inpatient (IN) | payer MEDICAID, OTHER ==
--- NOTE | 2018-12-12 19:55 | ED ---
Psych HPI - General Chief Complaint: Psychiatric Symptoms Stated Complaint: Mental Health Time Seen by Provider: 12/12/18 19:55 Source: patient, RN notes reviewed, old records reviewed Mode of arrival: ambulatory - History of Present Illness Initial Comments: This is a 28-year-old female who does admit to drinking coming in for evaluation of psychiatric illness. Patient did take overdose and was seen at the [facility] yesterday, patient's depression and suicidal thoughts have continued. Patient denies any other drugs being used. No prior history of psychiatric MD Complaint: suicidal ideation, feels depressed -: days(s) Associated Psychiatric Symptoms: depression, suicidal ideation Quality: constant Improves With: none Worsens With: none Context: recent alcohol abuse Associated Symptoms: denies other symptoms Treatments Prior to Arrival: placed on mental health hold If Self Harm: admits thoughts of self harm - Related Data Previous Rx's Medication Instructions Recorded lamoTRIgine [LaMICtal] 200 mg PO 2100 30 Days #30 tab 07/01/18 risperiDONE [RisperDAL] 0.75 mg PO HS #90 tab 07/01/18 Allergies Allergy/AdvReac Type Severity Reaction Status Date / Time codeine Allergy Rash/Hives Verified 12/12/18 20:06 diphenhydramine HCl Allergy Rash/Hives Verified 12/12/18 20:06 [From Benadryl] Review of Systems ROS Statement: Those systems with pertinent positive or pertinent negative responses have been documented in the HPI. ROS Other: All systems not noted in ROS Statement are negative. Past Medical History Past Medical History: Asthma, Musculoskeletal Disorder Additional Past Medical History / Comment(s): Obstetric history: This is her first . She has had care with me since 9 weeks gestation. O neg, abs neg, Rub Imm, RPR NR, Hep B neg. normal 1hr GTT. Rhogam received 88-14. normal anatomy US. GBS neg History of Any Multi-Drug Resistant Organisms: None Reported Past Surgical History: Tonsillectomy Additional Past Surgical History / Comment(s): no hx of anesthesia problems for self or family Past Anesthesia/Blood Transfusion Reactions: No Reported Reaction Past Psychological History: ADD/ADHD, Depression Smoking Status: Current every day smoker Past Alcohol Use History: Unable to Obtain, Occasional General Exam Limitations: no limitations General appearance: alert, in no apparent distress Head exam: Present: atraumatic, normocephalic, normal inspection Eye exam: Present: normal appearance, PERRL, EOMI. Absent: scleral icterus, conjunctival injection, periorbital swelling ENT exam: Present: normal exam, mucous membranes moist Neck exam: Present: normal inspection. Absent: tenderness, meningismus, lymphadenopathy Respiratory exam: Present: normal lung sounds bilaterally. Absent: respiratory distress, wheezes, rales, rhonchi, stridor Cardiovascular Exam: Present: regular rate, normal rhythm, normal heart sounds. Absent: systolic murmur, diastolic murmur, rubs, gallop, clicks GI/Abdominal exam: Present: soft, normal bowel sounds. Absent: distended, tenderness, guarding, rebound, rigid Extremities exam: Present: normal inspection, full ROM, normal capillary refill. Absent: tenderness, pedal edema, joint swelling, calf tenderness Back exam: Present: normal inspection Neurological exam: Present: alert, oriented X3, CN II-XII intact Psychiatric exam: Present: normal affect, normal mood Skin exam: Present: warm, dry, intact, normal color. Absent: rash Course Vital Signs 12/12/18 12/12/18 19:50 20:22 Temperature 98.4 F Pulse Rate 62 Respiratory 18 18 Rate Blood Pressure 107/65 O2 Sat by Pulse 99 Oximetry - Reevaluation(s) Reevaluation #1: 12/12/18 21:47 Medical record is reviewed including lab tests from [facility], Reevaluation #2: 12/12/18 21:47 Medical clear for psychiatric evaluation Medical Decision Making - Medical Decision Making 28 female to be admitted for psychiatric evaluation and treatment. Disposition Clinical Impression: Acute anxiety, Suicidal ideation, Depression, Bipolar 1 disorder, depressed Disposition: TRANSFER TO PSYCH HOSP/UNIT Condition: Fair Is patient prescribed a controlled substance at d/c from ED?: No Referrals: Adriana Michaels MD [Primary Care Provider] - 1-2 days
[2018-12-12] MEDS ORDERED: MAG HYDROX/AL HYDROX/SIMETH 30 ML CUP PO PRN (23:04)
[2018-12-12] MEDS ORDERED: MAGNESIUM HYDROXIDE 2,400 MG/10 ML CUP PO PRN (23:04)
[2018-12-12] MEDS ORDERED: LORazepam 1 MG TAB PO PRN (23:09)
[2018-12-12] MEDS ORDERED: ZIPRASIDONE 20 MG VIAL IM PRN (23:09)
[2018-12-13 10:16] LABS: Basophils % (A) 0 %; Eosinophils # (A) 0.3 k/uL (0-0.7); Eosinophils % (A) 7 %; HCT 38.5 % (34.0-46.0); HGB 12.4 gm/dL (11.4-16.0); Lymphocytes # (A) 1.3 k/uL (1.0-4.8); Lymphocytes % (A) 30 %; MCH 28.2 pg (25.0-35.0); MCHC 32.3 g/dL (31.0-37.0); MCV 87.3 fL (80.0-100.0); Mean Platelet Volume 7.8; Monocytes # (A) 0.2 k/uL (0-1.0); Monocytes % (A) 5 %; Neutrophils # (A) 2.3 k/uL (1.3-7.7); Neutrophils % (A) 54 %; Platelet Count 200 k/uL (150-450); RDW 12.9 % (11.5-15.5); WBC 4.2 k/uL (3.8-10.6)
[2018-12-13 10:19] LABS: ALT 27 U/L (9-52); AST 17 U/L (14-36); Albumin 4.5 g/dL (3.5-5.0); Alkaline Phosphatase 43 U/L (38-126); Anion Gap 9 mmol/L; Blood Urea Nitrogen 14 mg/dL (7-17); Calcium 9.2 mg/dL (8.4-10.2); Carbon Dioxide 23 mmol/L (22-30); Chloride 109 mmol/L (98-107); Cholesterol 144 mg/dL (<200); Glucose 109 mg/dL (74-99); HDL Cholesterol 46 mg/dL (40-60); LDL Cholesterol,Calculated 76 mg/dL (0-99); Sodium 141 mmol/L (137-145); Total Bilirubin 0.4 mg/dL (0.2-1.3); Total Protein 7.1 g/dL (6.3-8.2); Triglycerides 111 mg/dL (<150)
--- NOTE | 2018-12-13 11:39 | P.CONS ---
History of Present Illness - History of Present Illness This is a pleasant 28 years old female with past medical history of asthma and musculoskeletal disorder who presents because of depression and suicidal thoughts. Patient was at [facility] 2 days ago for the same. Currently patient denies any physical symptoms like no chest pain or dyspnea. No abdominal pain or nausea vomiting. No change in urine or bowel habits, no f ever. Patient states that she takes her medication for depression and bipolar disorder only and that she does not have history of seizure. She said recently she change her hormonal contraception injection 2 pills by her PCP Dr. ferrara and [employer], she is a mother of 2. She states they checked her . [facility] it was negative. I offered to repeat her urine/blood test, however patient declined stating that was recently done. Risks including but not limited to the autogenous stent case of are explained to the patient and she verbalized understanding but still refuses to do the test. Vital signs stable. Hemoglobin 12.4. Creatinine 0.5. Liver enzymes within normal. TSH and lipid profile within normal limits. The patient and suicidal thoughts. Management as per primary team History of asthma, not in active tissue Muscular skeletal disorder, not in activation Review of Systems CONSTITUTIONAL: No fever, no malaise, no fatigue. HEENT: No recent visual problems or hearing problems. Denied any sore throat. CARDIOVASCULAR: No orthopnea, PND, no palpitations, no syncope. PULMONARY: No shortness of breath, no cough, no hemoptysis. GASTROINTESTINAL: No diarrhea, no nausea, no vomiting, no abdominal pain. No rmoactive bowel sounds. NEUROLOGICAL: No headaches, no weakness, no numbness. HEMATOLOGICAL: Denies any bleeding or petechiae. GENITOURINARY: Denies any burning micturition, frequency, or urgency. MUSCULOSKELETAL/RHEUMATOLOGICAL: Denies any joint pain, swelling, or any muscle pain. ENDOCRINE: Denies any polyuria or polydipsia. Past Medical History Past Medical History: Asthma, Musculoskeletal Disorder Additional Past Medical History / Comment(s): Obstetric history: This is her first . She has had care with me since 9 weeks gestation. O neg, abs neg, Rub Imm, RPR NR, Hep B neg. normal 1hr GTT. Rhogam received 04-06-14. normal anatomy US. GBS neg History of Any Multi-Drug Resistant Organisms: None Reported Past Surgical History: Tonsillectomy Additional Past Surgical History / Comment(s): no hx of anesthesia problems for self or family Past Anesthesia/Blood Transfusion Reactions: No Reported Reaction Past Psychological History: ADD/ADHD, Depression Smoking Status: Current every day smoker Past Alcohol Use History: Unable to Obtain, Occasional Medications and Allergies Home Medications Medication Instructions Recorded Confirmed Type Norethindrone-E.estradiol-Iron 1 tab PO DAILY 12/13/18 12/13/18 History [Junel Fe 1.5 mg-30 Mcg Tablet] OXcarbazepine [Trileptal] 150 mg PO BID 12/13/18 12/13/18 History buPROPion XL [Wellbutrin Xl] 150 mg PO DAILY 12/13/18 12/13/18 History lamoTRIgine [LaMICtal] 200 mg PO DAILY 12/13/18 12/13/18 History Allergies Allergy/AdvReac Type Severity Reaction Status Date / Time codeine Allergy Rash/Hives Verified 12/13/18 08:33 diphenhydramine HCl Allergy Rash/Hives Verified 12/13/18 08:33 [From Benadryl] Physical Exam Vitals: Vital Signs Temp Pulse Pulse Resp BP BP Pulse Ox 12/13/18 06:52 98.3 F 75 16 119/58 12/13/18 00:30 97.6 F 67 16 122/79 12/12/18 22:00 17 12/12/18 20:22 18 12/12/18 19:50 98.4 F 62 18 107/65 99 Intake and Output 12/12/18 12/13/18 12/13/18 22:59 06:59 14:59 Other: Weight 83.37 kg 61.717 kg GENERAL: The patient is alert and oriented x3, not in any acute distress. Well developed, well nourished. HEENT: Pupils are round and equally reacting to light. EOMI. No scleral icterus. No conjunctival pallor. Normocephalic, atraumatic. No pharyngeal erythema. No thyromegaly. CARDIOVASCULAR: S1 and S2 present. No murmurs, rubs, or gallops. PULMONARY: Chest is clear to auscultation, no wheezing or crackles. ABDOMEN: Soft, nontender, nondistended, normoactive bowel sounds. No palpable organomegaly. MUSCULOSKELETAL: No joint swelling or deformity. EXTREMITIES: No cyanosis, clubbing, or pedal edema. NEUROLOGICAL: Gross neurological examination did not reveal any focal deficits. SKIN: No rashes. Results CBC & Chem 7: 12/13/18 08:38 12/13/18 08:38 Labs: Abnormal Lab Results - Last 24 Hours (Table) 12/13/18 Range/Units 08:38 Chloride 109 H (98-107) mmol/L Glucose 109 H (74-99) mg/dL Assessment and Plan Assessment: Depression and suicidal ideation, bipolar disorder, anxiety. Management as per primary psychiatric team History of asthma, not active issue History of [facility] disorder, not active issue She is a mother of 2 children, denied to check her test. Plan: This is a pleasant 28 years old female who presents for depression and suicidal ideation. Treatment of her psychiatrist illnesses as per primary psychiatrist team. We will been consulted for medical management, Labs and medication were reviewed.. Continue same treatment. Continue with symptomatic treatment. Resume home medication. Monitor lytes and vitals. DVT and GI prophylaxis. Further recommendations of the clinical course of the patient DVT prophylaxis: No need for anticoagulation as patient is mobile GI prophylaxis: Not needed
[2018-12-13 12:24] VITALS: BMI 21.9
--- NOTE | 2018-12-13 12:31 | P.HP ---
Psychiatric H&P - . H&P Date: 12/13/18 History & Physical: Allergies Allergy/AdvReac Type Severity Reaction Status Date / Time codeine Allergy Rash/Hives Verified 12/13/18 08:33 diphenhydramine HCl Allergy Rash/Hives Verified 12/13/18 08:33 [From Benadryl] Vital Signs Temp 98.3 F 12/13/18 06:52 Pulse 75 12/13/18 06:52 Resp 16 12/13/18 06:52 BP 119/58 12/13/18 06:52 Pulse Ox 99 12/12/18 19:50 Intake & Output 12/12/18 12/13/18 12/13/18 18:59 06:59 18:59 Weight 61.717 kg Laboratory Last Values WBC 4.2 k/uL (3.8-10.6) 12/13/18 08:38 RBC 4.40 m/uL (3.80-5.40) 12/13/18 08:38 Hgb 12.4 gm/dL (11.4-16.0) 12/13/18 08:38 Hct 38.5 % (34.0-46.0) 12/13/18 08:38 MCV 87.3 fL (80.0-100.0) 12/13/18 08:38 MCH 28.2 pg (25.0-35.0) 12/13/18 08:38 MCHC 32.3 g/dL (31.0-37.0) 12/13/18 08:38 RDW 12.9 % (11.5-15.5) 12/13/18 08:38 Plt Count 200 k/uL (150-450) 12/13/18 08:38 Neutrophils % 54 % 12/13/18 08:38 Lymphocytes % 30 % 12/13/18 08:38 Monocytes % 5 % 12/13/18 08:38 Eosinophils % 7 % 12/13/18 08:38 Basophils % 0 % 12/13/18 08:38 Neutrophils # 2.3 k/uL (1.3-7.7) 12/13/18 08:38 Lymphocytes # 1.3 k/uL (1.0-4.8) 12/13/18 08:38 Monocytes # 0.2 k/uL (0-1.0) 12/13/18 08:38 Eosinophils # 0.3 k/uL (0-0.7) 12/13/18 08:38 Basophils # 0.0 k/uL (0-0.2) 12/13/18 08:38 Sodium 141 mmol/L (137-145) 12/13/18 08:38 Potassium 4.0 mmol/L (3.5-5.1) 12/13/18 08:38 Chloride 109 mmol/L (98-107) H 12/13/18 08:38 Carbon Dioxide 23 mmol/L (22-30) 12/13/18 08:38 Anion Gap 9 mmol/L 12/13/18 08:38 BUN 14 mg/dL (7-17) 12/13/18 08:38 Creatinine 0.57 mg/dL (0.52-1.04) 12/13/18 08:38 Est GFR (CKD-EPI)AfAm >90 (>60 ml/min/1.73 sqM) 12/13/18 08:38 Est GFR (CKD-EPI)NonAf >90 (>60 ml/min/1.73 sqM) 12/13/18 08:38 Glucose 109 mg/dL (74-99) H 12/13/18 08:38 Calcium 9.2 mg/dL (8.4-10.2) 12/13/18 08:38 Total Bilirubin 0.4 mg/dL (0.2-1.3) 12/13/18 08:38 AST 17 U/L (14-36) 12/13/18 08:38 ALT 27 U/L (9-52) 12/13/18 08:38 Alkaline Phosphatase 43 U/L (38-126) 12/13/18 08:38 Total Protein 7.1 g/dL (6.3-8.2) 12/13/18 08:38 Albumin 4.5 g/dL (3.5-5.0) 12/13/18 08:38 Triglycerides 111 mg/dL (<150) 12/13/18 08:38 Cholesterol 144 mg/dL (<200) 12/13/18 08:38 LDL Cholesterol, Calc 76 mg/dL (0-99) 12/13/18 08:38 HDL Cholesterol 46 mg/dL (40-60) 12/13/18 08:38 Assessment and Plan Assessment: This is a 28-year-old female who does admit to drinking coming in for evaluation of psychiatric illness. Patient did take overdose and was seen at [facility] yesterday, patient's depression and suicidal thoughts have continued. Patient denies any other drugs being used. No prior history of psychiatric MD Complaint: suicidal ideation, feels depressed Pt was at [facility] r/t and OD. She was unresponsive upon admit. She said she told them it was an accident. She now admit that she meant to . 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 . She said if she goes home she will kill herself -: days(s) Associated Psychiatric Symptoms: depression, suicidal ideation Quality: constant Improves With: none Worsens With: none Context: recent alcohol abuse Associated Symptoms: denies other symptoms Treatments Prior to Arrival: placed on mental health hold If Self Harm: admits thoughts of self harm - Related Data Previous Rx's Medication Instructions Recorded lamoTRIgine [LaMICtal] 200 mg PO 2100 30 Days #30 tab 07/01/18 risperiDONE [RisperDAL] 0.75 mg PO HS #90 tab 07/01/18 Allergies Allergy/AdvReac Type Severity Reaction Status Date / Time codeine Allergy Rash/Hives Verified 12/12/18 20:06 diphenhydramine HCl Allergy Rash/Hives Verified 12/12/18 20:06 [From Benadryl] Past Medical History Past Medical History: Asthma, Musculoskeletal Disorder Additional Past Medical History / Comment(s): Obstetric history: This is her first . She has had care with ut since 9 weeks gestation. O neg, abs neg, Rub Imm, RPR NR, Hep B neg. normal 1hr GTT. Rhogam received 04-06-14. normal anatomy US. GBS neg History of Any Multi-Drug Resistant Organisms: None Reported Past Surgical History: Tonsillectomy Additional Past Surgical History / Comment(s): no hx of anesthesia problems for self or family Past Anesthesia/Blood Transfusion Reactions: No Reported Reaction Past Psychological History: ADD/ADHD, Depression Smoking Status: Current every day smoker Past Alcohol Use History: Unable to Obtain, Occasional Musculoskeletal Examination - Abnormal/Involuntary Movements: [none] Strength: [greater than antigravity (greater than/equal to 3/5) in all extremities:] Muscle Tone: [no impairment] Gait: [grossly normal] Station: [grossly normal] Mental Status Examination - she is dressed and hospital gown on top and sweats on the bottom. She is tearful and sad and remorseful. General Appearance: [well groomed casual, appears stated age] Speech/Language: [slow, monotone, expressive, soft] Attitude/Behavior: [cooperative, withdrawn, indifferent] Mood: [depressed, anxious, fearful, hopelessness] Affect: [flat, incongruent, labile, blunted constricted] Orientation: [time, person, place situation] Thought Content: [wnl, ] Risk Factors: [suicidal (ideations, plan) Perception: [wnl, paranoid] Thought Processes: [goal-oriented] Concentration/Attention Span: [wnl] [Per observation and interview with the patient] Recent Memory: [wnl] [ 2 or 3 out of 3 in 3 minutes] Remote Memory: [wnl] [past events, as related history] Intelligence: [average] [based on history, based on vocabulary, syntax, grammar, and content] Judgement: [good] [per patient's behavior/history of present illness] Insight: [good] [understanding severity of illness/history of present illness] Admitting Diagnosis: [Bipolar affective disorder type II] Patient Strengths - 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] Housing stability: [Has her own home] Able to vocalize needs: [Able to vocalize that she needs help] Motivation, determination, readiness for change: [Wants to change since she had suicidal thoughts and she does not want to ] Setting and pursuing goals, hopes, dreams, aspirations: [Wants to get a job] Resources - social, interpersonal, monetary: [Has a supportive mother and father] Patient Limitations: [pathological/unsupported environment, no interests Initial Plan of Care: [Initial treatment plan would be to hospitalize on the behavioral health unit, psychiatric evaluation, medical evaluation, nursing staff evaluation, social work evaluation, recreational therapy and integrated in a therapeutic [facility] milieu environment. She'll be started on Lamictal 25 mg at bedtime for her mood instability and Wellbutrin] Estimated Length of Stay: [5 days] Initial Discharge Plan: [home, referred to therapist Prognosis: [good] Justification for Inpatient Hospitalization - [Hallucinations, delusions, agitation, anxiety, depression resulting in significant loss of functioning.] [Dangerous to self, others, or property with need for controlled environment.] [Emotional or behavioral conditions and complications requiring 24 hour medical and nursing care.] [Need for special drug therapy, or other therapeutic program requiring continuous hospitalization.] [Failure of social or occupational functioning.] [Inability to meet basic life and health needs.]
[2018-12-13 17:47] LABS: Amorphous Sediment,Urine Rare /hpf; Appearance,Urine Cloudy (Clear); Bilirubin,Urine Negative (Negative); Blood,Urine Negative (Negative); Color,Urine Yellow; Glucose,Urine (UA) Negative (Negative); Ketones,Urine Negative (Negative); Leukocyte Esterase,Urine Moderate (Negative); Mucus,Urine Many /hpf; Nitrite,Urine Negative (Negative); Protein,Urine 1+ (Negative); RBC,Urine 2 /hpf (0-5); Specific Gravity,Urine 1.027 (1.001-1.035); Squamous Epithelial Cell,Urine 41 /hpf (0-4); Urobilinogen,Urine <2.0 mg/dL (<2.0); WBC,Urine 2 /hpf (0-5)
[2018-12-13 19:09] LABS: Hemoglobin A1C 5.3 % (4.0-6.0)
[2018-12-13] MEDS ORDERED: QUEtiapine 25 MG TAB PO SCH (21:00)
[2018-12-13] MEDS ORDERED: lamoTRIgine 25 MG TAB PO SCH (21:00)
[2018-12-14] MEDS ORDERED: buPROPion XL 150 MG TAB.ER.24H PO SCH (09:00)
[2018-12-14] MEDS: ACETAMINOPHEN TAB 325 MG TAB PO PRN ×3 (09:35→22:57)
--- NOTE | 2018-12-14 13:38 | P.PN ---
Subjective Progress Note Date: 12/14/18 Principal diagnosis: Bipolar affective disorder and impulse disorder 12/14/2018: Chart reviewed, discussed in team meeting and talked about disposition and discharge after probate court. Patient interviewed and discussed why she overdosed which was an impulsive being alone episode after she was alone at home waiting for her daughter to be brought to her by her mother. She states that when she gets along she cannot handle time she impulsively used alcohol in medications to try to kill herself. She is remorseful but also is having difficulty dealing with her own emotions and encouraged her to use her coping skills and she'll be part of community mental health where she'll have some group activity Objective - Vital Signs Vital signs: Vital Signs Temp 97.9 F 12/14/18 07:06 Pulse 65 12/14/18 07:06 Resp 14 12/14/18 07:06 BP 118/55 12/14/18 07:06 Pulse Ox 99 12/12/18 19:50 - Labs CBC & Chem 7: 12/13/18 08:38 12/13/18 08:38 Labs: Abnormal Lab Results - Last 24 Hours (Table) 12/13/18 Range/Units 17:22 Urine Appearance Cloudy H (Clear) Urine Protein 1+ H (Negative) Ur Leukocyte Esterase Moderate H (Negative) Ur Squamous Epith Cells 41 H (0-4) /hpf Amorphous Sediment Rare H (None) /hpf Urine Mucus Many H (None) /hpf Assessment and Plan Assessment: This is a 28-year-old female who does admit to drinking coming in for evaluation of psychiatric illness. Patient did take overdose and was seen at [facility] yesterday, patient's depression and suicidal thoughts have continued. Patient denies any other drugs being used. No prior history of psychiatric MD Complaint: suicidal ideation, feels depressed Pt was at [facility] r/t and OD. She was unresponsive upon admit. She said she told them it was an accident. She now admit that she meant to . 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 . She said if she goes home she will kill herself -: days(s) Associated Psychiatric Symptoms: depression, suicidal ideation Quality: constant Improves With: none Worsens With: none Context: recent alcohol abuse Associated Symptoms: denies other symptoms Treatments Prior to Arrival: placed on mental health hold If Self Harm: admits thoughts of self harm - Related Data Previous Rx's Medication Instructions Recorded lamoTRIgine [LaMICtal] 200 mg PO 2100 30 Days #30 tab 07/01/18 risperiDONE [RisperDAL] 0.75 mg PO HS #90 tab 07/01/18 Allergies Allergy/AdvReac Type Severity Reaction Status Date / Time codeine Allergy Rash/Hives Verified 12/12/18 20:06 diphenhydramine HCl Allergy Rash/Hives Verified 12/12/18 20:06 [From Benadryl] Past Medical History Past Medical History: Asthma, Musculoskeletal Disorder Additional Past Medical History / Comment(s): Obstetric history: This is her first . She has had care with me since 9 weeks gestation. O neg, abs neg, Rub Imm, RPR NR, Hep B neg. normal 1hr GTT. Rhogam received 04-06-14. normal anatomy US. GBS neg History of Any Multi-Drug Resistant Organisms: None Reported Past Surgical History: Tonsillectomy Additional Past Surgical History / Comment(s): no hx of anesthesia problems for self or family Past Anesthesia/Blood Transfusion Reactions: No Reported Reaction Past Psychological History: ADD/ADHD, Depression Smoking Status: Current every day smoker Past Alcohol Use History: Unable to Obtain, Occasional Musculoskeletal Examination - Abnormal/Involuntary Movements: [none] Strength: [greater than antigravity (greater than/equal to 3/5) in all extremities:] Muscle Tone: [no impairment] Gait: [grossly normal] Station: [grossly normal] Mental Status Examination - she is dressed and hospital gown on top and sweats on the bottom. She is tearful and sad and remorseful. General Appearance: [well groomed casual, appears stated age] Speech/Language: [slow, monotone, expressive, soft] Attitude/Behavior: [cooperative, withdrawn, indifferent] Mood: [depressed, anxious, fearful, hopelessness] Affect: [flat, incongruent, labile, blunted constricted] Orientation: [time, person, place situation] Thought Content: [wnl, ] Risk Factors: [suicidal (ideations, plan) Perception: [wnl, paranoid] Thought Processes: [goal-oriented] Concentration/Attention Span: [wnl] [Per observation and interview with the patient] Recent Memory: [wnl] [ 2 or 3 out of 3 in 3 minutes] Remote Memory: [wnl] [past events, as related history] Intelligence: [average] [based on history, based on vocabulary, syntax, grammar, and content] Judgement: [good] [per patient's behavior/history of present illness] Insight: [good] [understanding severity of illness/history of present illness] Admitting Diagnosis: [Bipolar affective disorder type II] Patient Strengths - 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] Housing stability: [Has her own home] Able to vocalize needs: [Able to vocalize that she needs help] Motivation, determination, readiness for change: [Wants to change since she had suicidal thoughts and she does not want to ] Setting and pursuing goals, hopes, dreams, aspirations: [Wants to get a job] Resources - social, interpersonal, monetary: [Has a supportive mother and father] Patient Limitations: [pathological/unsupported environment, no interests Initial Plan of Care: [Initial treatment plan would be to hospitalize on the behavioral health unit, psychiatric evaluation, medical evaluation, nursing staff evaluation, social work evaluation, recreational therapy and integrated in a therapeutic shaw milieu environment. She'll be started on Lamictal 25 mg at bedtime for her mood instability and Wel lbutrin] (1) Bipolar 1 disorder, depressed Current Visit: Yes Status: Acute Priority: Medium Code(s): F31.9 - BIPOLAR DISORDER, UNSPECIFIED SNOMED Code(s): 92432209 Plan: 12/14/2018: She slept well without taking Seroquel and does not want to take it. She is fearful that she won't be able to wake up and take care of her children. She rates her depression as 8 out of 10 which is incongruent with her affect. Increasing her Lamictal tonight to 50 mg for mood stability and increasing Wellbutrin to 300 mg by mouth every morning for depression and anxiety and a history of ADHD would be helpful for this patient. She remains on 15 minute checks and usual protocol for safety on the mental health unit at [facility]. Time with Patient: Greater than 30
[2018-12-14] MEDS ORDERED: lamoTRIgine 25 MG TAB PO SCH (21:00)
[2018-12-15 07:06] VITALS: BP 109/64; PULSE 67; RESP 16; TEMP 98.4
[2018-12-15] MEDS ORDERED: buPROPion XL 300 MG TAB.ER.24H PO SCH (09:00)
--- NOTE | 2018-12-15 11:41 | P.DS ---
Providers Date of admission: 12/13/18 00:20 Expected date of discharge: 12/15/18 Attending physician: Harsh Spencer DO Consults: 12/12/18 23:04 Consult Physician Routine Consulting Provider: Augustina Barboza Consult Reason/Comments: medical management Do you want consulting provider notified?: Yes, Notify in am Primary care physician: Adriana Michaels - Discharge Diagnosis(es) (1) Bipolar 1 disorder, depressed Allergies Allergy/AdvReac Type Severity Reaction Status Date / Time codeine Allergy Rash/Hives Verified 12/13/18 08:33 diphenhydramine HCl Allergy Rash/Hives Verified 12/13/18 08:33 [From Benadryl] Vital Signs Temp 98.3 F 12/13/18 06:52 Pulse 75 12/13/18 06:52 Resp 16 12/13/18 06:52 BP 119/58 12/13/18 06:52 Pulse Ox 99 12/12/18 19:50 Intake & Output 12/12/18 12/13/18 12/13/18 18:59 06:59 18:59 Weight 61.717 kg Laboratory Last Values WBC 4.2 k/uL (3.8-10.6) 12/13/18 08:38 RBC 4.40 m/uL (3.80-5.40) 12/13/18 08:38 Hgb 12.4 gm/dL (11.4-16.0) 12/13/18 08:38 Hct 38.5 % (34.0-46.0) 12/13/18 08:38 MCV 87.3 fL (80.0-100.0) 12/13/18 08:38 MCH 28.2 pg (25.0-35.0) 12/13/18 08:38 MCHC 32.3 g/dL (31.0-37.0) 12/13/18 08:38 RDW 12.9 % (11.5-15.5) 12/13/18 08:38 Plt Count 200 k/uL (150-450) 12/13/18 08:38 Neutrophils % 54 % 12/13/18 08:38 Lymphocytes % 30 % 12/13/18 08:38 Monocytes % 5 % 12/13/18 08:38 Eosinophils % 7 % 12/13/18 08:38 Basophils % 0 % 12/13/18 08:38 Neutrophils # 2.3 k/uL (1.3-7.7) 12/13/18 08:38 Lymphocytes # 1.3 k/uL (1.0-4.8) 12/13/18 08:38 Monocytes # 0.2 k/uL (0-1.0) 12/13/18 08:38 Eosinophils # 0.3 k/uL (0-0.7) 12/13/18 08:38 Basophils # 0.0 k/uL (0-0.2) 12/13/18 08:38 Sodium 141 mmol/L (137-145) 12/13/18 08:38 Potassium 4.0 mmol/L (3.5-5.1) 12/13/18 08:38 Chloride 109 mmol/L (98-107) H 12/13/18 08:38 Carbon Dioxide 23 mmol/L (22-30) 12/13/18 08:38 Anion Gap 9 mmol/L 12/13/18 08:38 BUN 14 mg/dL (7-17) 12/13/18 08:38 Creatinine 0.57 mg/dL (0.52-1.04) 12/13/18 08:38 Est GFR (CKD-EPI)AfAm >90 (>60 ml/min/1.73 sqM) 12/13/18 08:38 Est GFR (CKD-EPI)NonAf >90 (>60 ml/min/1.73 sqM) 12/13/18 08:38 Glucose 109 mg/dL (74-99) H 12/13/18 08:38 Calcium 9.2 mg/dL (8.4-10.2) 12/13/18 08:38 Total Bilirubin 0.4 mg/dL (0.2-1.3) 12/13/18 08:38 AST 17 U/L (14-36) 12/13/18 08:38 ALT 27 U/L (9-52) 12/13/18 08:38 Alkaline Phosphatase 43 U/L (38-126) 12/13/18 08:38 Total Protein 7.1 g/dL (6.3-8.2) 12/13/18 08:38 Albumin 4.5 g/dL (3.5-5.0) 12/13/18 08:38 Triglycerides 111 mg/dL (<150) 12/13/18 08:38 Cholesterol 144 mg/dL (<200) 12/13/18 08:38 LDL Cholesterol, Calc 76 mg/dL (0-99) 12/13/18 08:38 HDL Cholesterol 46 mg/dL (40-60) 12/13/18 08:38 Assessment and Plan Assessment: This is a 28-year-old female who does admit to drinking coming in for evaluation of psychiatric illness. Patient did take overdose and was seen at [facility] yesterday, patient's depression and suicidal thoughts have continued. Patient denies any other drugs being used. No prior history of psychiatric MD Complaint: suicidal ideation, feels depressed Pt was at [facility] r/t and OD. She was unresponsive upon admit. She said she told them it was an accident. She now admit that she meant to . 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 . She said if she goes home she will kill herself -: days(s) Associated Psychiatric Symptoms: depression, suicidal ideation Quality: constant Improves With: none Worsens With: none Context: recent alcohol abuse Associated Symptoms: denies other symptoms Treatments Prior to Arrival: placed on mental health hold If Self Harm: admits thoughts of self harm - Related Data Previous Rx's Medication Instructions Recorded lamoTRIgine [LaMICtal] 200 mg PO 2100 30 Days #30 tab 07/01/18 risperiDONE [RisperDAL] 0.75 mg PO HS #90 tab 07/01/18 Allergies Allergy/AdvReac Type Severity Reaction Status Date / Time codeine Allergy Rash/Hives Verified 12/12/18 20:06 diphenhydramine HCl Allergy Rash/Hives Verified 12/12/18 20:06 [From Benadryl] Past Medical History Past Medical History: Asthma, Musculoskeletal Disorder Additional Past Medical History / Comment(s): Obstetric history: This is her first . She has had care with me since 9 weeks gestation. O neg, abs neg, Rub Imm, RPR NR, Hep B neg. normal 1hr GTT. Rhogam received 814. normal anatomy US. GBS neg History of Any Multi-Drug Resistant Organisms: None Reported Past Surgical History: Tonsillectomy Additional Past Surgical History / Comment(s): no hx of anesthesia problems for self or family Past Anesthesia/Blood Transfusion Reactions: No Reported Reaction Past Psychological History: ADD/ADHD, Depression Smoking Status: Current every day smoker Past Alcohol Use History: Unable to Obtain, Occasional Musculoskeletal Examination - Abnormal/Involuntary Movements: [none] Strength: [greater than antigravity (greater than/equal to 3/5) in all extremities:] Muscle Tone: [no impairment] Gait: [grossly normal] Station: [grossly normal] Mental Status Examination - she is dressed and hospital gown on top and sweats on the bottom. She is tearful and sad and remorseful. General Appearance: [well groomed casual, appears stated age] Speech/Language: [slow, monotone, expressive, soft] Attitude/Behavior: [cooperative, withdrawn, indifferent] Mood: [depressed, anxious, fearful, hopelessness] Affect: [flat, incongruent, labile, blunted constricted] Orientation: [time, person, place situation] Thought Content: [wnl, ] Risk Factors: [suicidal (ideations, plan) Perception: [wnl, paranoid] Thought Processes: [goal-oriented] Concentration/Attention Span: [wnl] [Per observation and interview with the patient] Recent Memory: [wnl] [ 2 or 3 out of 3 in 3 minutes] Remote Memory: [wnl] [past events, as related history] Intelligence: [average] [based on history, based on vocabulary, syntax, grammar, and content] Judgement: [good] [per patient's behavior/history of present illness] Insight: [good] [understanding severity of illness/history of present illness] Admitting Diagnosis: [Bipolar affective disorder type II] Current Visit: Yes Status: Acute Priority: Low Hospital Course: Initial Plan of Care: [Initial treatment plan would be to hospitalize on the behavioral health unit, psychiatric evaluation, medical evaluation, nursing staff evaluation, social work evaluation, recreational therapy and integrated in a therapeutic shaw milieu environment. She'll be started on Lamictal 25 mg at bedtime for her mood instability and Wellbutrin] Plan: 12/14/2018: She slept well without taking Seroquel and does not want to take it. She is fearful that she won't be able to wake up and take care of her children. She rates her depression as 8 out of 10 which is incongruent with her affect. Increasing her Lamictal tonight to 50 mg for mood stability and increasing Wellbutrin to 300 mg by mouth every morning for depression and anxiety and a history of ADHD would be helpful for this patient. She remains on 15 minute checks and usual protocol for safety on the mental health unit at [facility]. Mental status examination at the time of discharge 12/15/2018 11:40 AM The patient presents alert, pleasant, and cooperative. There calmly seated without any agitated behavior. [She] reports that [her] mood is good. Affect i s congruent and euthymic. [She] deny having any suicidal or homicidal ideation intent or plan. [She] denies any auditory or visual hallucinations. There is no evidence of any delusional thought content. [Her] thought process is linear and goal-directed. [Her] speech is fluent and nonpressured. [Her] memory and concentration is grossly intact for the purposes of this session. Patient Condition at Discharge: Stable Plan - Discharge Summary Discharge Rx Participant: Yes New Discharge Prescriptions: New lamoTRIgine [LaMICtal] 100 mg PO 2100 10 Days #10 tab Acetaminophen Tab [Tylenol] 650 mg PO Q4HR PRN tab PRN Reason: Pain/Discomfort buPROPion XL [Wellbutrin XL] 300 mg PO DAILY 30 Days #30 tab.er.24h Continue Norethindrone-E.estradiol-Iron [Junel Fe 1.5 mg-30 Mcg Tablet] 1 tab PO DAILY Discontinued OXcarbazepine [Trileptal] 150 mg PO BID lamoTRIgine [LaMICtal] 200 mg PO DAILY buPROPion XL [Wellbutrin Xl] 150 mg PO DAILY Discharge Medication List Norethindrone-E.estradiol-Iron [Junel Fe 1.5 mg-30 Mcg Tablet] 1 tab PO DAILY 12/13/18 [History] Acetaminophen Tab [Tylenol] 650 mg PO Q4HR PRN tab 12/15/18 [Rx] buPROPion XL [Wellbutrin XL] 300 mg PO DAILY 30 Days #30 tab.er.24h 12/15/18 [Rx] lamoTRIgine [LaMICtal] 100 mg PO 2100 10 Days #10 tab 12/15/18 [Rx] Follow up Appointment(s)/Referral(s): [facility] [Outside] - 12/20/18 4:00 pm (12-20-18 @ 4:00 with Ne Hand 12-22-18 @ 12:00 with GORDON Friedman ) Adriana Michaels MD [Primary Care Provider] - 1-2 days Patient Instructions/Handouts: Depression (DC), Suicide Prevention (DC) Activity/Diet/Wound Care/Special Instructions: Activity and diet as tolerated. Avoid the use of street drugs and alcohol. Take all medications as prescribed. When you are in need of refills on your medications please contact your medical provider and/or outpatient psychiatrist to have this done. Please go to scheduled outpatient appointment for aftercare treatment. If symptoms return or become worse, call the crisis line at and/or go to the nearest emergency room for evaluation. Discharge Disposition: HOME SELF-CARE
[2018-12-15] MEDS ORDERED: lamoTRIgine 100 MG TAB PO SCH (21:00)
== END 2018-12-15 12:50 | disposition home or self-care (01) | DRG 885 ==
LOC: EC 19:19 → 3MHU 23:02 → UNDOADMIN 23:02 → 3MHU 12-13 00:20
PROVIDERS: ADMIT Psychiatry & Neurology Psychiatry; ATTEND Psychiatry & Neurology Psychiatry
DX: F31.30 Bipolar disorder, current episode depressed, mild or moderate severity, unspecified (principal); R45.851 Suicidal ideations; F90.9 Attention-deficit hyperactivity disorder, unspecified type; F41.9 Anxiety disorder, unspecified; J45.909 Unspecified asthma, uncomplicated; F10.10 Alcohol abuse, uncomplicated; F17.210 Nicotine dependence, cigarettes, uncomplicated; Z71.6 Tobacco abuse counseling; Z79.899 Other long term (current) drug therapy; Z91.5 Personal history of self-harm; Z56.0 Unemployment, unspecified; Z65.0 Conviction in civil and criminal proceedings without imprisonment; Z98.890 Other specified postprocedural states; Z88.5 Allergy status to narcotic agent; Z88.8 Allergy status to other drugs, medicaments and biological substances
CPT/HCPCS: 80053; 80061; 81001; 81025; 82075; 83036; 84443; 85025; 99285

== ENCOUNTER 2020-04-19 15:21 | Emergency (ER) | payer OTHER ==
[2020-04-19 15:25] VITALS: BP 111/74; PULSE 91; RESP 20; TEMP 98.3
[2020-04-19 16:16] LABS: Basophils # (A) 0.1 k/uL (0-0.2); Basophils % (A) 1 %; Eosinophils # (A) 0.3 k/uL (0-0.7); Eosinophils % (A) 4 %; HCT 38.2 % (34.0-46.0); HGB 12.5 gm/dL (11.4-16.0); Lymphocytes # (A) 1.8 k/uL (1.0-4.8); Lymphocytes % (A) 26 %; MCH 26.9 pg (25.0-35.0); MCHC 32.7 g/dL (31.0-37.0); MCV 82.4 fL (80.0-100.0); Mean Platelet Volume 8.1; Monocytes # (A) 0.3 k/uL (0-1.0); Monocytes % (A) 4 %; Neutrophils # (A) 4.3 k/uL (1.3-7.7); Neutrophils % (A) 63 %; Platelet Count 234 k/uL (150-450); RBC 4.63 m/uL (3.80-5.40); RDW 14.7 % (11.5-15.5); WBC 6.9 k/uL (3.8-10.6)
[2020-04-19 16:19] LABS: ALT 13 U/L (4-34); AST 25 U/L (14-36); African American GFR (CKD) >90 (>60 ml/min/1.73 sqM); Albumin 4.7 g/dL (3.5-5.0); Alkaline Phosphatase 43 U/L (38-126); Anion Gap 8 mmol/L; Blood Urea Nitrogen 9 mg/dL (7-17); Calcium 9.1 mg/dL (8.4-10.2); Carbon Dioxide 22 mmol/L (22-30); Chloride 107 mmol/L (98-107); Glucose 122 mg/dL (74-99); Non-African American GFR(CKD) >90 (>60 ml/min/1.73 sqM); Sodium 137 mmol/L (137-145); Total Bilirubin 0.6 mg/dL (0.2-1.3); Total Protein 7.3 g/dL (6.3-8.2)
[2020-04-19 16:21] LABS: Appearance,Urine Clear (Clear); Bacteria,Urine Rare /hpf; Bilirubin,Urine Negative (Negative); Blood,Urine Negative (Negative); Color,Urine Yellow; Glucose,Urine (UA) Negative (Negative); Ketones,Urine Negative (Negative); Leukocyte Esterase,Urine Small (Negative); Mucus,Urine Moderate /hpf; Nitrite,Urine Negative (Negative); Protein,Urine Trace (Negative); RBC,Urine 2 /hpf (0-5); Specific Gravity,Urine 1.024 (1.001-1.035); Squamous Epithelial Cell,Urine 3 /hpf (0-4); Urobilinogen,Urine <2.0 mg/dL (<2.0); WBC,Urine 1 /hpf (0-5)
--- NOTE | 2020-04-19 16:55 | US ---
EXAMINATION TYPE: US transvaginal DATE OF EXAM: 04/19/2020 COMPARISON: NONE CLINICAL HISTORY: pelvic pain. TECHNIQUE: Transvaginal (TV). Transvaginal sonographic images were medically necessary to better as sess the following anatomy: Date of LMP: February 23, patient has arm implant control EXAM MEASUREMENTS: Uterus: 8.8 x 4.1 x 4.8 cm Endometrial Stripe: 0.4 cm Right Ovary: Obscured by overlying bowel gas Left Ovary: 2.3 x 1.3 x 1.5 cm 1. Uterus: Anteverted wnl 2. Endometrium: wnl 3. Right Ovary: Obscured by overlying bowel gas 4. Left Ovary: wnl Spectral, color and waveform doppler imaging shows good venous flow within the left ovary; there i s no evidence for ovarian torsion on left. Right not visualized 5. Bilateral Adnexa: wnl 6. Posterior cul-de-sac: wnl IMPRESSION: Negative transvaginal pelvic sonogram. No adnexal mass or free fluid. No evidence of ovarian torsion.
--- NOTE | 2020-04-19 16:59 | ED ---
Abdominal Pain HPI - General Chief Complaint: Abdominal Pain Stated Complaint: abd pain Time Seen by Provider: 04/19/20 15:26 Source: patient Mode of arrival: ambulatory Limitations: no limitations - History of Present Illness Initial Comments: 30-year-old female presents today for chief complaint of pelvic pain, vomiting 1 week. Patient states that she has taken 2 negative tests outpatient she states that she does have the Implanon in her left arm. Patient states that she does not believe she is but has had some midline pelvic discomfort. States at times it radiates to her back. Patient denies dysuria urgency frequency hematuria denies history of kidney stones denies flank pain. She states she has had vomiting on and off for the past week she denies any upper abdominal pain diarrhea or fevers. Patient denies right lower quadrant tenderness states is more midline diffuse lower pelvic. Patient has denied concern for sexual transmitted diseases denies vaginal discharge. Patient is no additional complaints upon arrival patient appears well nontoxic no acute distress denies any pertinent past medical history. - Related Data Home Medications Medication Instructions Recorded Confirmed Ibuprofen [Motrin Ib] 400 mg PO DAILY PRN 04/19/20 04/19/20 Allergies Allergy/AdvReac Type Severity Reaction Status Date / Time codeine Allergy Rash/Hives Verified 04/19/20 17:00 diphenhydramine HCl Allergy Rash/Hives Verified 04/19/20 17:00 [From Benadryl] Review of Systems ROS Statement: Those systems with pertinent positive or pertinent negative responses have been documented in the HPI. ROS Other: All systems not noted in ROS Statement are negative. Past Medical History Past Medical History: Asthma, Musculoskeletal Disorder Additional Past Medical History / Comment(s): Obstetric history: This is her fir st . She has had care with me since 9 weeks gestation. O neg, abs neg, Rub Imm, RPR NR, Hep B neg. normal 1hr GTT. Rhogam received 04-06-14. normal anatomy US. GBS neg. 12/13/18-Not pregnat currently above is a hX. History of Any Multi-Drug Resistant Organisms: None Reported Past Surgical History: Tonsillectomy Additional Past Surgical History / Comment(s): no hx of anesthesia problems for self or family Past Anesthesia/Blood Transfusion Reactions: No Reported Reaction Past Psychological History: ADD/ADHD, Depression Smoking Status: Current every day smoker Past Alcohol Use History: Occasional Past Drug Use History: Marijuana General Exam - General Exam Comments Initial Comments: General: The patient is awake and alert, in no distress, and does not appear acutely ill. Eye: Pupils are equal, round and reactive to light, extra-ocular movements are intact. No nystagmus. There is normal conjunctiva bilaterally. No signs of icterus. Cardiovascular: There is a regular rate and rhythm. No murmur, rub or gallop is appreciated. Respiratory: Lungs are clear to auscultation, respirations are non-labored, breath sounds are equal. No wheezes, stridor, rales, or rhonchi. Gastrointestinal: Soft, non-distended, midline mild lower pelvic tenderness on examination otherwise abdomen nontender, abdomen without masses or organomegaly noted. There is no rebound or guarding present. Musculoskeletal: Normal ROM, no tenderness. Strength 5/5. Sensation intact. Pulses equal bilaterally 2+. Neurological: A&O x 3. CN II-XII intact grossly, There are no obvious motor or sensory deficits. Coordination appears grossly intact. Speech is normal. Skin: Skin is warm and dry and no rashes or lesions are noted. Psychiatric: Cooperative, appropriate mood & affect, normal judgment. Limitations: no limitations Course Vital Signs 04/19/20 15:23 Temperature 98.3 F Pulse Rate 91 Respiratory 20 Rate Blood Pressure 111/74 O2 Sat by Pulse 99 Oximetry Medical Decision Making - Medical Decision Making nontoxic-appearing 30-year-old female presenting to the ER for pelvic pain, vomiting. HCG (-). Labs stable. US (-). Patient has very minimal pain on exam, no RLQ tenderness, appears comfortable in room. Patient at this time will be discharged with PCP and OBGYN f/u. Patient agreeable to this care plan and discharge. - Lab Data Result diagrams: 04/19/20 15:49 04/19/20 15:49 Lab Results 04/19/20 04/19/20 04/19/20 Range/Units 15:49 15:49 15:49 WBC 6.9 (3.8-10.6) k/uL RBC 4.63 (3.80-5.40) m/uL Hgb 12.5 (11.4-16.0) gm/dL Hct 38.2 (34.0-46.0) % MCV 82.4 (80.0-100.0) fL MCH 26.9 (25.0-35.0) pg MCHC 32.7 (31.0-37.0) g/dL RDW 14.7 (11.5-15.5) % Plt Count 234 (150-450) k/uL Neutrophils % 63 % Lymphocytes % 26 % Monocytes % 4 % Eosinophils % 4 % Basophils % 1 % Neutrophils # 4.3 (1.3-7.7) k/uL Lymphocytes # 1.8 (1.0-4.8) k/uL Monocytes # 0.3 (0-1.0) k/uL Eosinophils # 0.3 (0-0.7) k/uL Basophils # 0.1 (0-0.2) k/uL Sodium (137-145) mmol/L Potassium (3.5-5.1) mmol/L Chloride (98-107) mmol/L Carbon Dioxide (22-30) mmol/L Anion Gap mmol/L BUN (7-17) mg/dL Creatinine (0.52-1.04) mg/dL Est GFR (CKD-EPI)AfAm (>60 ml/min/1.73 sqM) Est GFR (CKD-EPI)NonAf (>60 ml/min/1.73 sqM) Glucose (74-99) mg/dL Calcium (8.4-10.2) mg/dL Total Bilirubin (0.2-1.3) mg/dL AST (14-36) U/L ALT (4-34) U/L Alkaline Phosphatase (38-126) U/L Total Protein (6.3-8.2) g/dL Albumin (3.5-5.0) g/dL Urine Color Yellow Urine Appearance Clear (Clear) Urine pH 7.0 (5.0-8.0) Ur Specific [place] 1.024 (1.001-1.035) Urine Protein Trace H (Negative) Urine Glucose (UA) Negative (Negative) Urine Ketones Negative (Negative) Urine Blood Negative (Negative) Urine Nitrite Negative (Negative) Urine Bilirubin Negative (Negative) Urine Urobilinogen <2.0 (<2.0) mg/dL Ur Leukocyte Esterase Small H (Negative) Urine RBC 2 (0-5) /hpf Urine WBC 1 (0-5) /hpf Ur Squamous Epith Cells 3 (0-4) /hpf Urine Bacteria Rare H (None) /hpf Urine Mucus Moderate H (None) /hpf Urine HCG, Qual Not Detected (Not Detectd) 04/19/20 Range/Units 15:49 WBC (3.8-10.6) k/uL RBC (3.80-5.40) m/uL Hgb (11.4-16.0) gm/dL Hct (34.0-46.0) % MCV (80.0-100.0) fL MCH (25.0-35.0) pg MCHC (31.0-37.0) g/dL RDW (11.5-15.5) % Plt Count (150-450) k/uL Neutrophils % % Lymphocytes % % Monocytes % % Eosinophils % % Basophils % % Neutrophils # (1.3-7.7) k/uL Lymphocytes # (1.0-4.8) k/uL Monocytes # (0-1.0) k/uL Eosinophils # (0-0.7) k/uL Basophils # (0-0.2) k/uL Sodium 137 (137-145) mmol/L Potassium 4.0 (3.5-5.1) mmol/L Chloride 107 (98-107) mmol/L Carbon Dioxide 22 (22-30) mmol/L Anion Gap 8 mmol/L BUN 9 (7-17) mg/dL Creatinine 0.55 (0.52-1.04) mg/dL Est GFR (CKD-EPI)AfAm >90 (>60 ml/min/1.73 sqM) Est GFR (CKD-EPI)NonAf >90 (>60 ml/min/1.73 sqM) Glucose 122 H (74-99) mg/dL Calcium 9.1 (8.4-10.2) mg/dL Total Bilirubin 0.6 (0.2-1.3) mg/dL AST 25 (14-36) U/L ALT 13 (4-34) U/L Alkaline Phosphatase 43 (38-126) U/L Total Protein 7.3 (6.3-8.2) g/dL Albumin 4.7 (3.5-5.0) g/dL Urine Color Urine Appearance (Clear) Urine pH (5.0-8.0) Ur Specific [place] (1.001-1.035) Urine Protein (Negative) Urine Glucose (UA) (Negative) Urine Ketones (Negative) Urine Blood (Negative) Urine Nitrite (Negative) Urine Bilirubin (Negative) Urine Urobilinogen (<2.0) mg/dL Ur Leukocyte Esterase (Negative) Urine RBC (0-5) /hpf Urine WBC (0-5) /hpf Ur Squamous Epith Cells (0-4) /hpf Urine Bacteria (None) /hpf Urine Mucus (None) /hpf Urine HCG, Qual (Not Detectd) Disposition Clinical Impression: Pelvic pain, Nausea & vomiting Disposition: HOME SELF-CARE Condition: Good Instructions (If sedation given, give patient instructions): Pelvic Pain in Women (ED) Additional Instructions: Please use medication as discussed. Please follow-up with family doctor in the next 2 days, and OBGYN in next 1-2 weeks. Please return to emergency room if th e symptoms increase or worsen or for any other concerns. Is patient prescribed a controlled substance at d/c from ED?: No Referrals: Adriana Michaels MD [Primary Care Provider] - 1-2 days Time of Disposition: 16:58
== END 2020-04-19 17:14 | disposition home or self-care (01) ==
LOC: EC 15:21
DX: R10.2 Pelvic and perineal pain (principal); R11.2 Nausea with vomiting, unspecified; F17.200 Nicotine dependence, unspecified, uncomplicated; Z88.5 Allergy status to narcotic agent; Z88.8 Allergy status to other drugs, medicaments and biological substances
CPT/HCPCS: 36415; 76830; 80053; 81001; 81025; 85025; 93976; 99284

== ENCOUNTER 2021-01-02 07:50 | Day surgery (SDC) | payer OTHER ==
[2021-01-01 11:57] VITALS: BMI 25.0
--- NOTE | 2021-01-02 06:47 | P.HPOB ---
History of Present Illness H&P Date: 01/02/21 Chief Complaint: family planning 30 year old presents for laparoscopic tubal ligation. Review of Systems All systems: negative Constitutional: Denies chills, Denies fever Eyes: denies blurred vision, denies pain Ears, nose, mouth and throat: Denies headache, Denies sore throat Cardiovascular: Denies chest pain, Denies shortness of breath Respiratory: Denies cough Gastrointestinal: Denies abdominal pain, Denies diarrhea, Denies nausea, Denies vomiting Genitourinary: Denies dysuria, Denies hematuria Musculoskeletal: Denies myalgias Integumentary: Denies pruritus, Denies rash Neurological: Denies numbness, Denies weakness Psychiatric: Denies anxiety, Denies depression Endocrine: Denies fatigue, Denies weight change Past Medical History Past Medical History: Asthma, Musculoskeletal Disorder History of Any Multi-Drug Resistant Organisms: None Reported Past Surgical History: Tonsillectomy Additional Past Surgical History / Comment(s): no hx of anesthesia problems for self or family Past Anesthesia/Blood Transfusion Reactions: No Reported Reaction Smoking Status: Current every day smoker - Past Family History Mother Family Medical History: No Reported History Medications and Allergies Home Medications Medication Instructions Recorded Confirmed Type Ibuprofen [Motrin Ib] 400 mg PO DAILY PRN 04/19/20 01/01/21 History Acetaminophen Tab [Tylenol] 650 mg PO Q6H 01/01/21 01/01/21 History Allergies Allergy/AdvReac Type Severity Reaction Status Date / Time codeine Allergy Rash/Hives Verified 01/01/21 11:33 diphenhydramine HCl Allergy Rash/Hives Verified 01/01/21 11:33 [From Benadryl] Exam Osteopathic Statement: *. No significant issues noted on an osteopathic structural exam other than those noted in the History and Physical/Consult. Intake and Output 01/01/21 01/01/21 01/02/21 14:59 22:59 06:59 Other: Weight 70.307 kg HEart: RRR Lungs: CTAB Abdomen: soft, nontender Extremeties: neg gianluca's Assessment and Plan (1) Family planning Status: Acute Code(s): Z30.09 - ENCOUNTER FOR OTH GENERAL CNSL AND ADVICE ON CONTRACEPTION SNOMED Code(s): 484563316 Plan: 1. laparoscopic tubal ligation
[~2021-01-02 07:50] MED LIST: DEXAMETHASONE SOD PHOSPHATE 4 MG/ML 1 ML VIAL IV ONE; LACTATED RINGERS 1,000 ML IV SCH; LIDOCAINE 1% (10MG/ML) FOR IV START INTRADERMA PRN; ONDANSETRON 4 MG/2 ML VIAL IVP ONE; Pre Op ABX Message 1 EACH MISC MISCELLANE ONE
[2021-01-02] MEDS ORDERED: SCOPOLAMINE 1.5MG/72HR PATCH TRANSDERM ONE (09:20)
[2021-01-02] MEDS ORDERED: NEOSTIGMINE 1 MG/ML 10 ML VIAL ONE (09:26)
[2021-01-02] MEDS ORDERED: GLYCOPYRROLATE 0.2 MG/ML 2 ML VIAL ONE ×2 (09:26)
[2021-01-02] MEDS ORDERED: SUCCINYLCHOLINE CHLORIDE 100 MG/5 ML SYR IV ONE (09:26)
[2021-01-02] MEDS ORDERED: diphenhydrAMINE 50 MG/ML 1 ML VIAL ONE (09:26)
[2021-01-02] MEDS ORDERED: ROCURONIUM 10 MG/ML (5 ML VIAL) IV ONE (09:26)
[2021-01-02] MEDS ORDERED: PROPOFOL 10 MG/ML 20 ML VIAL IV ONE (09:26)
[2021-01-02] MEDS ORDERED: LIDOCAINE 1% INJ 10MG/ML (20 ML MDV) ONE (09:26)
[2021-01-02] MEDS ORDERED: fentaNYL (PF) 50 MCG/ML 2 ML AMP ONE (09:26)
[2021-01-02] MEDS ORDERED: KETOROLAC 15 MG/ML 1 ML VIAL ONE (09:26)
[2021-01-02] MEDS ORDERED: MIDAZOLAM 2 MG/2 ML VIAL ONE (09:26)
[2021-01-02] MEDS ORDERED: BUPIVACAINE (PF) 0.25% 30 ML VIAL SQ ONE ×2 (09:53→10:00)
--- NOTE | 2021-01-02 10:20 | P.OP ---
Date of Procedure: 01/02/21 Preoperative Diagnosis: 1. Family Planning Postoperative Diagnosis: 1. Family Planning Procedure(s) Performed: Laparoscopic tubal ligation Anesthesia: JC Surgeon: Quynh Stallings Estimated Blood Loss (ml): 5 IV fluids (ml): 800 Urine output (ml): 30 Pathology: none sent Condition: stable Disposition: PACU Operative Findings: Normal uterus, tubes, ovaries. Uterus sounded to 8 cm. Description of Procedure: Patient was taken to the operating room where general anesthesia was obtained without difficulty. She was prepped and draped in normal sterile fashion in the dorsal lithotomy position, legs placed in the Az stirrups. Bladder drained of all urine. [place] speculum placed in the vagina and the anterior lip the cervix was grasped with single-tooth tenaculum. The uterus is sounded to 8 cm and the kroner manipulator was placed. Attention was then turned to the abdomen and gloves were changed. A 5 mm infraumbilical incision was made the scalpel and 5 mm optical trocar was placed under direct visualization. A 5 mm suprapubic Incision was made and a 5 mm optical trocar was placed under direct visualization. Survey of the pelvis revealed normal uterus tubes and ovaries. The left fallopian tube was grasped with a Kleppinger and fulgurated 2-3 cm on this side in the ampullar portion. The right fallopian tube was grasped with a Kleppinger and fulgurated 2-3 cm in the ampullar portion. All instruments were then removed from the abdomen and vagina. The 5 mm infraumbilical incision was closed with 4-0 Monocryl in a subcuticular fashion. The 5 mm incision was closed with 4-0 Monocryl in a subcuticular fashion. Patient tolerated procedure well, sponge and instrument counts correct 2 and she was taken to recovery room in stable condition.
[2021-01-02 10:37] VITALS: TEMP 97.6
[2021-01-02 11:27] VITALS: RESP 16
[2021-01-02] MEDS ORDERED: HYDROcodone/APAP 7.5-325MG 1 EACH TAB ONE (11:30)
[2021-01-02] MEDS ORDERED: HYDROcodone/APAP 7.5-325MG 1 EACH TAB PO ONE (11:32)
[2021-01-02 11:58] VITALS: BP 102/63; PULSE 53
== END 2021-01-02 12:19 | disposition home or self-care (01) ==
LOC: OR 07:50
PROVIDERS: ATTEND Obstetrics & Gynecology
DX: J45.909 Unspecified asthma, uncomplicated (principal); Z90.89 Acquired absence of other organs; F17.210 Nicotine dependence, cigarettes, uncomplicated; Z79.899 Other long term (current) drug therapy; Z88.5 Allergy status to narcotic agent; Z88.8 Allergy status to other drugs, medicaments and biological substances
CPT/HCPCS: 81025; 58670; J2250; J1200; J1100; J2710; J2405; J2001; J3010; J1885; J0330; J2704

== ENCOUNTER → 2021-12-26 | Outpatient (CLI) | payer OTHER ==
--- NOTE | 2021-12-26 11:13 | USB ---
Reason for exam: clinical finding. Physical Findings: A clinical breast exam by your physician is recommended on an annual basis and results should be correlated with mammographic findings. US Breast BILAT Right complete breast ultrasound includes all four quadrants, the retroareolar region and axilla. Finding demonstrates no cystic or solid lesion seen. Left complete breast ultrasound includes all four quadrants, the retroareolar region and axilla. Finding demonstrates no cystic or solid lesion seen. Results were given to the patient verbally at the time of the exam. ASSESSMENT: Negative, BI-RAD 1 RECOMMENDATION: Clinical management of both breasts. Manage patient on a clinical basis.
== END | disposition home or self-care (01) ==
LOC: RADUSWWP 07:41
PROVIDERS: ATTEND Family Medicine
DX: N64.4 Mastodynia (principal)

== ENCOUNTER → 2022-01-05 | Outpatient (CLI) | payer OTHER ==
--- NOTE | 2022-01-05 07:46 | US ---
EXAMINATION TYPE: US abdomen complete DATE OF EXAM: 01/05/2022 COMPARISON: CT 2017 CLINICAL HISTORY: R10.9 Abdominal pain. Abdominal pain EXAM MEASUREMENTS: Liver Length: 16.7 cm Gallbladder Wall: 0.2 cm CBD: 0.4 cm Spleen: 11.3 cm Right Kidney: 11.3 x 4.3 x 4.1 cm Left Kidney: 11.2 x 5.2 x 5.0 cm Pancreas: visualized portions appear wnl, limited evaluation due to overlying bowel content Liver: wnl Gallbladder: no evidence of stones Evidence for sonographic Wood's sign: no CBD: wnl Spleen: appears wnl Right Kidney: no evidence of hydronephrosis or mass Left Kidney: no evidence of hydronephrosis or mass Upper IVC: wnl Abd Aorta: wnl The visualized liver is homogenous. The intrahepatic portion of the IVC and visualized abdominal aor ta are within normal limits. There is no evidence of cholelithiasis. Common bile duct is unremarkab le. The visualized portions of the pancreas are homogenous. The spleen is unremarkable. Kidneys ar e symmetric and free of hydronephrosis. No renal lesions are seen. IMPRESSION: No acute findings are evident.
== END | disposition home or self-care (01) ==
LOC: RADUSWWP 07:05
PROVIDERS: ATTEND Family Medicine
DX: R10.9 Unspecified abdominal pain (principal)
CPT/HCPCS: 76700

== ENCOUNTER 2022-07-21 11:53 | Inpatient (IN) | payer MEDICAID, OTHER ==
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
[2022-07-21 13:58] LABS: Amphetamine Screen,Urine Not Detected (NotDetected); Barbiturate Screen,Urine Not Detected (NotDetected); Benzodiazepines Screen,Urine Not Detected (NotDetected); Cocaine Screen,Urine Detected (NotDetected); Methadone Screen, Urine Not Detected (NotDetected); Opiate Screen,Urine Not Detected (NotDetected); Oxycodone Screen, Urine Not Detected (NotDetected); Phencyclidine Screen,Urine Not Detected (NotDetected); Tricyclic Antidepressant,Urine Not Detected (NotDetected); Urn Cannabinoid Scrn Detected (NotDetected)
[2022-07-21] MEDS ORDERED: MAGNESIUM HYDROXIDE 2,400 MG/10 ML CUP PO PRN (22:10)
[2022-07-21] MEDS ORDERED: LORazepam 1 MG TAB PO PRN (22:10)
[2022-07-21] MEDS ORDERED: HALOPERIDOL LACTATE 5 MG/ML 1 ML VIAL IM PRN (22:10)
[2022-07-21] MEDS ORDERED: LORazepam 1 MG/0.5 ML VIAL IM PRN (22:13)
[2022-07-21] MEDS ORDERED: haloperidoL 5 MG TAB PO PRN (22:13)
[2022-07-22] MEDS ORDERED: MAG HYDROX/AL HYDROX/SIMETH 30 ML CUP PO PRN
[2022-07-22 08:01] LABS: Basophils % (A) 1 %; Eosinophils # (A) 0.2 k/uL (0-0.7); Eosinophils % (A) 5 %; HCT 37.5 % (34.0-46.0); HGB 11.8 gm/dL (11.4-16.0); Hypochromasia Slight; Lymphocytes # (A) 1.4 k/uL (1.0-4.8); Lymphocytes % (A) 28 %; MCH 26.5 pg (25.0-35.0); MCHC 31.5 g/dL (31.0-37.0); MCV 84.1 fL (80.0-100.0); Mean Platelet Volume 8.7; Monocytes # (A) 0.3 k/uL (0-1.0); Monocytes % (A) 5 %; Neutrophils # (A) 2.9 k/uL (1.3-7.7); Neutrophils % (A) 59 %; Platelet Count 220 k/uL (150-450); RBC 4.46 m/uL (3.80-5.40); RDW 14.8 % (11.5-15.5); WBC 4.9 k/uL (3.8-10.6)
[2022-07-22 08:09] LABS: ALT 14 U/L (4-34); AST 19 U/L (14-36); African American GFR (CKD) >90 (>60 ml/min/1.73 sqM); Albumin 4.6 g/dL (3.5-5.0); Alkaline Phosphatase 49 U/L (38-126); Anion Gap 8 mmol/L; Blood Urea Nitrogen 14 mg/dL (7-17); Carbon Dioxide 24 mmol/L (22-30); Chloride 107 mmol/L (98-107); Glucose 100 mg/dL (74-99); Non-African American GFR(CKD) >90 (>60 ml/min/1.73 sqM); Potassium 4.1 mmol/L (3.5-5.1); Sodium 139 mmol/L (137-145); Total Bilirubin 0.7 mg/dL (0.2-1.3)
[2022-07-22] MEDS ORDERED: ARIPiprazole 10 MG TAB PO STA (10:57)
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
[2022-07-22 16:24] LABS: Chol/HDL Ratio 2.35 Ratio; LDL Cholesterol,Calculated 59.6 mg/dL (0.0-131.0)
[2022-07-22] MEDS: ACETAMINOPHEN TAB 325 MG TAB PO PRN (17:14)
[2022-07-22] MEDS ORDERED: LORazepam 2 MG/ML INJ IM PRN (18:03)
[2022-07-22] MEDS: LITHIUM CARBONATE 150 MG CAP PO SCH (21:02)
[2022-07-23] MEDS: LITHIUM CARBONATE 150 MG CAP PO SCH ×2 (08:03→21:00)
[2022-07-23] MEDS: ARIPiprazole 10 MG TAB PO SCH (08:03)
--- NOTE | 2022-07-23 10:27 | P.PN ---
Progress Note - Text Progress Note Date: 07/23/22 Interval History: Patient was seen wandering the hallways and was directable and agreeable to speak with play writer in the office. The patient currently denies any suicidal or homicidal ideation, intention, and/or plan. She reports no auditory or visual hallucinations. She denies any paranoia or other delusions. She continues to refute the claims of her parents in regards to her bipolar symptoms. However, she is agreement to be on medications for bipolar disorder. She does admit to a history of impulsivity, distractability, and racing thoughts. She reports no issues regarding her sleep or appetite. She is in agreement to transition to [facility]. Mental Status Exam: General Appearance: Patient appears to be stated age is alert, directable, and cooperative. Behavior: Patient is calmly seated without any agitated behavior. Speech: Patient's speech is fluent and nonpressured. Slightly fast. Mood/Affect: Mood is improving mildly, affect is congruent and euthymic. Suicidality/Homicidality: Patient denies having any suicidal or homicidal ideation intent or plan. Perceptions: Patient denies any visual hallucinations and denies any auditory hallucinations Though content/process: There is no evidence of any delusional thought content and thought process is linear and goal-directed. Memory and concentration: AOX3, grossly intact for the purposes of this session Judgment and insight: Improving mildly Vital Signs Temp 97.6 F 07/21/22 22:41 Pulse 71 07/22/22 21:03 Resp 18 07/21/22 22:41 BP 138/63 07/22/22 21:03 Pulse Ox 97 07/21/22 22:00 FiO2 Laboratory Results - Last 24 Hours 07/22/22 07/22/22 07:09 07:[address] Glu mg/dL 113 Hemoglobin A1c 5.6 Triglycerides 121.00 Cholesterol 146.00 LDL Cholesterol, Calc 59.6 VLDL Cholesterol, Calc 24.20 HDL Cholesterol 62.20 H Cholesterol/HDL Ratio 2.35 Assessment Bipolar 2 disorder, depressive episode Cannabis use disorder Tobacco use disorder Rule out cocaine use disorder Plan: -Patient continues to meet criteria for inpatient psychiatric admission for symptom stabilization and safety. Patient has signed adult voluntary form and medication consent and was placed in patient's chart. -Medications: Continue [place] 450 mg twice daily for mood stabilization Continue Abilify 10 mg daily for mood stabilization. Titrate tomorrow. NRT-Nicotine patch. -When necessary Ativan and Haldol for agitation/aggression. -SW on board for discharge planning. Encouraged the patient to participate in milieu.
[2022-07-24] MEDS: ACETAMINOPHEN TAB 325 MG TAB PO PRN (05:31)
[2022-07-24] MEDS ORDERED: NICOTINE 14MG/24HR PATCH TRANSDERM SCH (09:00)
[2022-07-24] MEDS: LITHIUM CARBONATE 150 MG CAP PO SCH ×2 (09:05→21:38)
[2022-07-24] MEDS: ARIPiprazole 10 MG TAB PO SCH (09:05)
--- NOTE | 2022-07-24 09:36 | P.PN ---
Progress Note - Text Progress Note Date: 07/24/22 Interval History: Patient was seen wandering the hallways and was directable and agreeable to speak with tech writer in the office. The patient currently denies any suicidal or homicidal ideation, intention, and/or plan. She reports no auditory or visual hallucinations. She denies any paranoia or other delusions. She reports that her mother came to visit her yesterday. She reports the visit went well and acknowledges her mother is a good support for her. She continues to refute the claims her mother has of her. She is however in continued agreement to transitioning to abilfiy maintena. She has been adherent with her medications and is not endorsing any side effects. Mental Status Exam: General Appearance: Patient appears to be stated age is alert, directable, and cooperative. Behavior: Patient is calmly seated without any agitated behavior. Speech: Patient's speech is fluent and nonpressured. Slightly fast. Mood/Affect: Mood is improving mildly, affect is congruent and euthymic. Suicidality/Homicidality: Patient denies having any suicidal or homicidal ideat ion intent or plan. Perceptions: Patient denies any visual hallucinations and denies any auditory hallucinations Though content/process: There is no evidence of any delusional thought content and thought process is linear and goal-directed. Memory and concentration: AOX3, grossly intact for the purposes of this session Judgment and insight: Improving mildly Vital Signs Temp 98.2 F 07/24/22 06:07 Pulse 81 07/24/22 06:07 Resp 18 07/24/22 06:07 BP 123/67 07/24/22 06:07 Pulse Ox 99 07/24/22 06:07 FiO2 Assessment Bipolar 2 disorder, depressive episode Cannabis use disorder Tobacco use disorder Rule out cocaine use disorder Plan: -Patient continues to meet criteria for inpatient psychiatric admission for symptom stabilization and safety. Patient has signed adult voluntary form and medication consent and was placed in patient's chart. -Medications: Continue [place] 450 mg twice daily for mood stabilization. Draw lithium level on wednesday. Increase abilify to 15 mg at bedtime. Titrate to 20 mg over the weekend and administer Abilify maintena 400 mg IM on wednesday in anticipation for discharge on wednesday. NRT-Nicotine patch. -When necessary Ativan and Haldol for agitation/aggression. -SW on board for discharge planning. Encouraged the patient to participate in milieu.
[2022-07-24] MEDS ORDERED: ARIPiprazole 15 MG TAB PO SCH (21:00)
[2022-07-25 06:40] VITALS: RESP 16
[2022-07-25] MEDS: LITHIUM CARBONATE 150 MG CAP PO SCH ×2 (08:17→20:56)
[2022-07-25] MEDS: NICOTINE GUM (POLACRILEX) 2 MG GUM BUCCAL PRN (08:37)
[2022-07-25] MEDS ORDERED: ARIPiprazole 10 MG TAB PO SCH (09:00)
--- NOTE | 2022-07-25 14:58 | P.PN ---
Progress Note - Text Progress Note Date: 07/25/22 Interval History: Patient was seen wandering the hallways and was directable and agreeable to speak with medical writer. The patient currently denies any suicidal or homicidal ideation, intention, and/or plan. She reports no auditory or visual hallucinations. She denies any paranoia or other delusions. She is future oriented and mentions her children. She states that she has been feeling "well "and hopes to continue her medications outside the hospital. She reports being happy to receive Abilify Maintena tomorrow. She has been adherent with her medications and is not endorsing any side effects. Mental Status Exam: General Appearance: Patient appears to be stated age is alert, directable, and cooperative. Behavior: Patient is calmly seated without any agitated behavior. Speech: Patient's speech is fluent and nonpressured. Slightly fast. Mood/Affect: Mood is "well", affect is congruent and euthymic. Suicidality/Homicidality: Patient denies having any suicidal or homicidal ideation intent or plan. Perceptions: Patient denies any visual hallucinations and denies any auditory hallucinations Though content/process: There is no evidence of any delusional thought content and thought process is linear and goal-directed. Memory and concentration: AOX3, grossly intact for the purposes of this session Judgment and insight: Improving mildly Assessment Bipolar 2 disorder, depressive episode Cannabis use disorder Tobacco use disorder Rule out cocaine use disorder Plan: -Patient continues to meet criteria for inpatient psychiatric admission for symptom stabilization and safety. Patient has signed adult voluntary form and medication consent and was placed in patient's chart. -Medications: Continue [place] 450 mg twice daily for mood stabilization. Draw lithium level on wednesday. Increase abilify to 20 mg tonight and administer Abilify maintena 400 mg IM on wednesday in anticipation for discharge on wednesday. NRT-Nicotine patch. -When necessary Ativan and Haldol for agitation/aggression. -SW on board for discharge planning. Encouraged the patient to participate in milieu.
[2022-07-26] MEDS ORDERED: ARIPiprazole IM SYRINGE 400 MG (NO CHARGE) PHARMACY STOCK IM ONE (09:00)
[2022-07-26] MEDS: NICOTINE GUM (POLACRILEX) 2 MG GUM BUCCAL PRN (09:47)
[2022-07-26] MEDS: LITHIUM CARBONATE 150 MG CAP PO SCH (11:51)
[2022-07-26] MEDS: ACETAMINOPHEN TAB 325 MG TAB PO PRN ×2 (11:56→16:36)
[2022-07-26 14:59] VITALS: BP 129/68; PULSE 68; TEMP 97.3
--- NOTE | 2022-07-26 18:46 | P.PN ---
Progress Note - Text Progress Note Date: 07/26/22 Interval History: Patient was seen wandering the hallways and was directable and agreeable to speak with law writer. The patient currently denies any suicidal or homicidal ideation, intention, and/or plan. She reports no auditory or visual hallucinations. She denies any paranoia or other delusions. She reports tolerating the Abilify Maintena today and the increased dose of the Abilify last night. Discussed the lithium level and given that patient reports being very energetic today and having trouble sleeping, discussed increasing lithium tonight. Patient was agreeable with this change. She states that she has been feeling "very good" and hopes to continue her medications outside the hospital. She has been adherent with her medications and is not endorsing any side effects. Mental Status Exam: General Appearance: Patient appears to be stated age is alert, directable, and cooperative. Behavior: Patient is calmly seated without any agitated behavior. Speech: Patient's speech is fluent and nonpressured. Slightly fast. Mood/Affect: Mood is "very good", affect is mildly elevated Suicidality/Homicidality: Patient denies having any suicidal or homicidal ideation intent or plan. Perceptions: Patient denies any visual hallucinations and denies any auditory hallucinations Though content/process: There is no evidence of any delusional thought content and thought process is linear and goal-directed. Memory and concentration: AOX3, grossly intact for the purposes of this session Judgment and insight: Improving mildly Assessment Bipolar 2 disorder, depressive episode Cannabis use disorder Tobacco use disorder Rule out cocaine use disorder Plan: -Patient continues to meet criteria for inpatient psychiatric admission for symptom stabilization and safety. Patient has signed adult voluntary form and medication consent and was placed in patient's chart. -Medications: Increase [place] to 450 mg daily and 600 qHS for mood stabilization. Li level 0.4 on 07/26 when on [place] 450 mg BID Continue Abilify 20 mg qHS and patient had Abilify maintena 400 mg IM on 07/26/22 NRT-Nicotine patch. -When necessary Ativan and Haldol for agitation/aggression. -SW on board for discharge planning. Encouraged the patient to participate in milieu.
[2022-07-26] MEDS ORDERED: LITHIUM CARBONATE 300 MG CAP PO SCH (21:00)
[2022-07-27] MEDS ORDERED: LITHIUM CARBONATE 150 MG CAP PO SCH (09:00)
[2022-07-27] MEDS: ACETAMINOPHEN TAB 325 MG TAB PO PRN (09:43)
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
== END 2022-07-27 11:43 | disposition home or self-care (01) | DRG 885 ==
LOC: EC 11:53 → 3MHU 21:35
PROVIDERS: ADMIT Psychiatry & Neurology Psychiatry; ATTEND Psychiatry & Neurology Psychiatry
DX: F31.81 Bipolar II disorder (principal); R45.851 Suicidal ideations; Z20.822 Contact with and (suspected) exposure to COVID-19; F14.10 Cocaine abuse, uncomplicated; F12.10 Cannabis abuse, uncomplicated; F17.210 Nicotine dependence, cigarettes, uncomplicated; F90.9 Attention-deficit hyperactivity disorder, unspecified type; Z79.899 Other long term (current) drug therapy; Z91.410 Personal history of adult physical and sexual abuse; Z91.411 Personal history of adult psychological abuse; Z88.5 Allergy status to narcotic agent; Z88.8 Allergy status to other drugs, medicaments and biological substances; Z71.6 Tobacco abuse counseling; Z71.51 Drug abuse counseling and surveillance of drug abuser
CPT/HCPCS: 80053; 80061; 80178; 80306; 82075; 83036; 84443; 85025; 87635; 99291

== ENCOUNTER 2023-06-28 16:03 | Emergency (ER) | payer OTHER ==
[2023-06-28 16:19] VITALS: TEMP 98.5
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
[2023-06-28 16:51] LABS: Amphetamine Screen,Urine Not Detected (NotDetected); Barbiturate Screen,Urine Not Detected (NotDetected); Benzodiazepines Screen,Urine Not Detected (NotDetected); Cocaine Screen,Urine Detected (NotDetected); Methadone Screen, Urine Not Detected (NotDetected); Opiate Screen,Urine Not Detected (NotDetected); Oxycodone Screen, Urine Not Detected (NotDetected); Phencyclidine Screen,Urine Not Detected (NotDetected); Tricyclic Antidepressant,Urine Not Detected (NotDetected); Urn Cannabinoid Scrn Detected (NotDetected)
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
[2023-06-28 17:23] LABS: Basophils % (A) 1 %; Eosinophils % (A) 0 %; HCT 37.9 % (34.0-46.0); HGB 12.1 gm/dL (11.4-16.0); Hypochromasia Slight; Lymphocytes % (A) 13 %; MCH 26.3 pg (25.0-35.0); MCHC 31.9 g/dL (31.0-37.0); MCV 82.4 fL (80.0-100.0); Monocytes # (A) 0.3 k/uL (0-1.0); Monocytes % (A) 4 %; Neutrophils # (A) 6.6 k/uL (1.3-7.7); Neutrophils % (A) 81 %; Platelet Count 287 k/uL (150-450); RBC 4.59 m/uL (3.80-5.40); RDW 15.8 % (11.5-15.5); WBC 8.2 k/uL (3.8-10.6)
[2023-06-28 17:34] LABS: INR 0.9 (<1.2); Prothrombin Time 10.1 sec (10.0-12.5)
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
[2023-06-28 17:41] LABS: ALT 17 U/L (4-34); AST 24 U/L (14-36); African American GFR (CKD) >90 (>60 ml/min/1.73 sqM); Albumin 5.2 g/dL (3.5-5.0); Alkaline Phosphatase 50 U/L (38-126); Anion Gap 13 mmol/L; Blood Urea Nitrogen 5 mg/dL (7-17); Calcium 9.6 mg/dL (8.4-10.2); Carbon Dioxide 22 mmol/L (22-30); Chloride 110 mmol/L (98-107); Glucose 103 mg/dL (74-99); Non-African American GFR(CKD) >90 (>60 ml/min/1.73 sqM); Partial Thromboplastin Time 21.7 sec (22.0-30.0); Potassium 4.1 mmol/L (3.5-5.1); Sodium 145 mmol/L (137-145); Total Bilirubin 0.3 mg/dL (0.2-1.3); Total Protein 8.3 g/dL (6.3-8.2)
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
[2023-06-28 17:48] LABS: Alcohol 223 mg/dL
[2023-06-28 18:44] VITALS: BP 136/68; PULSE 86; RESP 16
== END 2023-06-28 18:42 | disposition home or self-care (01) ==
LOC: EC 16:03
DX: S42.191A Fracture of other part of scapula, right shoulder, initial encounter for closed fracture (principal); S00.11XA Contusion of right eyelid and periocular area, initial encounter; F17.200 Nicotine dependence, unspecified, uncomplicated; F12.90 Cannabis use, unspecified, uncomplicated; F14.90 Cocaine use, unspecified, uncomplicated; Z88.5 Allergy status to narcotic agent; Z88.8 Allergy status to other drugs, medicaments and biological substances; V89.2XXA Person injured in unspecified motor-vehicle accident, traffic, initial encounter; Y92.410 Unspecified street and highway as the place of occurrence of the external cause
CPT/HCPCS: 36415; 93005; 80053; 84484; 85025; 85610; 85730; 80306; 80320; 72170; 71045; 72125; 70450; 71260; 74177; 99285; Q9967